=== PATIENT | female | born 1970 | race Caucasian/White ===

== ENCOUNTER 2018-05-17 16:22 | Outpatient (REF) | payer BC, SELFPAY ==
--- NOTE | 2018-05-17 16:15 | PAPFT_PTH ---
PATIENT: Anne Hayes LOC: [facility]#:[id number] AGE/SX: 47/F ROOM: RE05/17/[address]: Rosie Hansen : 1970 BED: DIS: 05/17/2018 SPEC #: [id number] RECD: 05/18/18 12:53 STATUS: LARA RETracy #: [id number] TABITHA: 05/17/18 16:[address]: Rosie Hansen DEPT: [facility] Cytology RECD BY: Natasha Sanchez ENTERED: 05/18/18 12:53 SP TYPE: PAPFT OTHR DR: Mark Whelan Tissues: 1 - CX/ENDOCX FOR PAP SMEARS Procedures: PAP THIN PREP/UVM Screening HPV DNA PROBE Comments: [id number]
[2018-05-17 21:28] LABS: Cholesterol 180 mg/dL (50-200); HDL Cholesterol 57 mg/dL (40-60); LDL CHOLESTEROL 108 mg/dL (<100); TSH (W/Ref FT4) 1.34 uIU/mL (0.358-3.74); Triglyceride 103 mg/dL (30-150)
== END 2018-05-17 16:42 ==
LOC: NCHCN 16:22
PROVIDERS: PCP Internal Medicine; Referring Provider Nurse Practitioner Family; Visit Provider Nurse Practitioner Family
DX: Z00.00 Encounter for general adult medical examination without abnormal findings (principal); N95.1 Menopausal and female climacteric states; F41.0 Panic disorder [episodic paroxysmal anxiety]; F32.9 Major depressive disorder, single episode, unspecified; Z12.4 Encounter for screening for malignant neoplasm of cervix; Z11.51 Encounter for screening for human papillomavirus (HPV)
CPT/HCPCS: 80061; 83721; 88142; 84443; 87624

== ENCOUNTER 2018-05-29 01:00 | Outpatient (CLI) | payer BC, SELFPAY ==
--- NOTE | 2018-05-29 15:57 | DI.MAMMO_ITS ---
SYMPTOM/DIAGNOSIS: SCREENING, Z12.31 MAMMOGRAM: Mammograms were interpreted according to the usual protocol including computer analysis with CAD system, tomosynthesis and C view imaging. The breast tissue is heterogeneously radiodense which lowers the sensitivity of the study. There is no dominant mass. There are no suspicious calcifications and there has been no significant interval change when compared with prior images. SUMMARY: No evidence of malignancy, Category 1 Routine screening mammography is recommended. Breast density category B. MQSA ASSESSMENT OF FINDINGS: Negative. Category 1. Patient will receive a letter notifying them of these results. BI-RADS category B. There are scattered areas of fibroglandular density.
== END 2018-05-29 01:20 ==
PROVIDERS: PCP Internal Medicine; Visit Provider Nurse Practitioner Family
DX: Z12.31 Encounter for screening mammogram for malignant neoplasm of breast (principal)
CPT/HCPCS: 77063; 77067

== ENCOUNTER 2019-07-31 01:25 | Outpatient (CLI) | payer BC, SELFPAY ==
--- NOTE | 2019-07-31 15:50 | DI.MAMMO_ITS ---
EXAM: MAMMO SCREENING CLINICAL HISTORY: SCREENING Z12.31 TECHNIQUE: Mammograms were interpreted according to the usual protocol including computer analysis w [employer] CAD system, tomosynthesis and C-view imaging. COMPARISON: Current examination is compared with previous examinations including May 2018 FINDINGS: The breasts are heterogeneously dense. No dominant mass or clumped microcalcification is identified in either breast. Current examination is compared with previous examinations including May and note is made of increased prominence of focal asymmetric density projected in the central porti on of left breast on CC view. Possibility of interval development of a mass is not excluded. Correl ation with spot compression views of the left breast to include CC spot compression view and MLO spot compression views is recommended. No other significant change is seen in either breast. IMPRESSION: Additional mammographic views, left breast, requested as described above. Breast ultrasound may be in dicated as well depending on results of additional mammographic views. Category 0, breast density cat egory C. BI-RADS Cat 0 - Assessment Incomplete: Need additional imaging evaluation Breast Density - Category C - Heterogeneously dense
== END 2019-07-31 01:45 ==
PROVIDERS: PCP Internal Medicine; Visit Provider Nurse Practitioner Family
DX: Z12.31 Encounter for screening mammogram for malignant neoplasm of breast (principal); R92.8 Other abnormal and inconclusive findings on diagnostic imaging of breast
CPT/HCPCS: 77063; 77067

== ENCOUNTER 2019-08-05 10:04 | Outpatient (CLI) | payer BC, SELFPAY ==
--- NOTE | 2019-08-05 14:11 | DI.MAMMO_ITS ---
EXAM: MAMMO SCREEN CALL BACK UNI CLINICAL HISTORY: INCREASED PROMINENCE OF FOCAL ASYMMETRIC DENSITY PROJECTED IN CENTRAL PORTION LT B REAST TECHNIQUE: Craniocaudal and mediolateral oblique Full Field Digital Mammography views with Computer Aided Diagnosis followed by Breast Tomosynthesis and left breast ultrasound. COMPARISON: MAMMO SCREEN CALL BACK UNI from 08/05/2019 FINDINGS: Mammography/Tomosynthesis: Breast Density: Breast Density - Category C - Heterogeneously dense Asymmetry: Stable appearing. Masses/Architectural Distortion: None seen. Microcalcifications: No suspicious pleomorphic-type are seen. Skin Thickening/Nipple Retraction: None. Breast Ultrasound: Left breast ultrasound: Echotexture: Normal appearance of the glandular tissue. Shadowing: No suspicious foci. Cyst: None. Solid lesions: None seen. Ductal dilation: None. IMPRESSION: 1. No evidence of malignancy at this time. Six-month follow-up left mammogram is recommended for re- evaluation. BI-RADS Cat 3 - 6 month - Probably Benign Finding: Recommend follow-up mammography in 6 months Breast Density - Category C - Heterogeneously dense The findings were discussed with the patient on the date of the examination. The mammogram demonstrates the patient's breast tissue is dense. Dense breast tissue is very common a nd is not abnormal but dense breast tissue can make it harder to find cancer on a mammogram. Also, de nse breast tissue may increase their breast cancer risk. This information about the result of the [facility] mogram report was provided to the patient to raise their awareness. Use this report when you speak wi th the patient about their risks for breast cancer, which includes their family history. At that time , you may recommend for more screening tests (Ultrasound or MRI) as they might be useful based on the ir risk. A negative radiographic report should not delay biopsy if a dominant or clinically suspicious mass is present. Up to ten percent of cancers are not identified on mammography. A negative report may reinforce clinical impression. Adenosis and dense breasts may obscure an underlying neoplasm. False positive reports average 6 to 10%. Patient will receive a letter notifying them of these results.
--- NOTE | 2019-08-05 14:33 | DI.US_ITS ---
EXAM: MG MAMMO SCREEN CALL BACK UNI AND US BREAST LT LIMITED CLINICAL HISTORY: INCREASED PROMINENCE OF FOCAL ASYMMETRIC DENSITY PROJECTED IN CENTRAL PORTION LT B REAST TECHNIQUE: Craniocaudal and mediolateral oblique Full Field Digital Mammography views with Computer Aided Diagnosis followed by Breast Tomosynthesis and left breast ultrasound. COMPARISON: MAMMO SCREEN CALL BACK UNI from 08/05/2019 FINDINGS: Mammography/Tomosynthesis: Breast Density: Breast Density - Category C - Heterogeneously dense Asymmetry: Stable appearing. Masses/Architectural Distortion: None seen. Microcalcifications: No suspicious pleomorphic-type are seen. Skin Thickening/Nipple Retraction: None. Breast Ultrasound: Left breast ultrasound: Echotexture: Normal appearance of the glandular tissue. Shadowing: No suspicious foci. Cyst: None. Solid lesions: None seen. Ductal dilation: None. IMPRESSION: 1. No evidence of malignancy at this time. Six-month follow-up left mammogram is recommended for re-e valuation. BI-RADS Cat 3 - 6 month - Probably Benign Finding: Recommend follow-up mammography in 6 months Breast Density - Category C - Heterogeneously dense The findings were discussed with the patient on the date of the examination. The mammogram demonstrates the patient's breast tissue is dense. Dense breast tissue is very common a nd is not abnormal but dense breast tissue can make it harder to find cancer on a mammogram. Also, de nse breast tissue may increase their breast cancer risk. This information about the result of the [facility] mogram report was provided to the patient to raise their awareness. Use this report when you speak wi th the patient about their risks for breast cancer, which includes their family history. At that time , you may recommend for more screening tests (Ultrasound or MRI) as they might be useful based on the ir risk. A negative radiographic report should not delay biopsy if a dominant or clinically suspicious mass is present. Up to ten percent of cancers are not identified on mammography. A negative report may reinforce clinical impression. Adenosis and dense breasts may obscure an underlying neoplasm. False positive reports average 6 to 10%. Patient will receive a letter notifying them of these results.
== END 2019-08-05 10:24 ==
PROVIDERS: PCP Internal Medicine; Visit Provider Nurse Practitioner Family
DX: Z12.31 Encounter for screening mammogram for malignant neoplasm of breast (principal); R92.8 Other abnormal and inconclusive findings on diagnostic imaging of breast; N64.59 Other signs and symptoms in breast
CPT/HCPCS: 76642; 77063; 77067

== ENCOUNTER 2020-02-04 02:31 | Outpatient (CLI) | payer BC, SELFPAY ==
--- NOTE | 2020-02-04 | DI.MAMMO_ITS ---
EXAM: MG MAMMO DIAGNOSTIC UNI CLINICAL HISTORY: ABNL LT BREAST MAMMO, R92.8 6 MO F/U TECHNIQUE: Mammograms were interpreted according to the usual protocol including computer analysis w [employer] CAD system, tomosynthesis and C-view imaging. COMPARISON: FINDINGS: Left breast mammogram was obtained to follow an area of questionable asymmetric density seen in centr al portion left breast prior examination of August 2019. Findings appears centrally unchanged on t jason's examination. No new mass seen. No other significant change in the breast. IMPRESSION: No specific evidence of malignancy. Follow-up mammogram recommended in 6 months which should be bila teral mammogram to resume routine screening of the contralateral breast as well. Category: BI-RADS Cat 3 - 6 month - Probably Benign Finding: Recommend follow-up mammography in 6 months Breast Density - Category C - Heterogeneously dense
== END 2020-02-04 02:51 ==
PROVIDERS: PCP Internal Medicine; Visit Provider Nurse Practitioner Family
DX: Z12.31 Encounter for screening mammogram for malignant neoplasm of breast (principal); R92.8 Other abnormal and inconclusive findings on diagnostic imaging of breast; N64.59 Other signs and symptoms in breast
CPT/HCPCS: 77061; 77065; G0279

== ENCOUNTER 2020-02-24 07:07 | Day surgery (SDC) | payer BC, SELFPAY ==
--- NOTE | 2020-02-24 06:16 | W.PREOPHP ---
Date of service: 02/24/20 Time of Service: 07:16 Assessment and Plan Assessment and plan (1) Encounter for colorectal cancer screening: Status: Acute Assessment and plan: The patient is here for Colonoscopy pre-op. She has no family history of colon cancer. She has not had any bowel habit changes. -Discussed colonoscopy bowel prep as well as the procedure. Discussed possible complications of the procedure to include bleeding, pain, perforation, missed small lesion/polyp, sore throat, aspiration and adverse reaction to the medications. Questions were answered to patient?s satisfaction. No guarantees were implied or given. History of Present Illness Narrative: 49 y/o female with benign medical history presents for her first colonoscopy screening pre-op. She denies a family history of colon cancer. She denies any changes in bowel habits including bloody or black tarry stools, abdominal pain, diarrhea or constipation. She denies constitutional symptoms. Denies use of marijuana or any other recreational or illegal drugs. She denies chest pain, palpitations, dyspnea or dyspnea with exertion. She performs at home workouts 5x/wk. She denies prior history or family history of adverse reactions or complications with anesthesia. No changes in her health since she was seen in the office in November. Review of Systems Constitutional Constitutional: Denies fever(s) Cardiovascular Cardiovascular: Denies chest pain, Denies irregular heart rhythm, Denies palpitations and Denies dyspnea Respiratory Respiratory: Denies cough and Denies dyspnea Endocrine Endocrine: Denies palpitations [facility] Social History (Updated 11/15/19 @ 15:00 by BUBBA Hussein) Smoking/Tobacco Use Status: Never Alcohol Intake: current Alcohol Intake frequency: a few times a week Alcohol type: wine Drug use: Never Substance use type: does not use Do you feel safe at home: Yes Do you feel safe in your relationship?: Yes Meds Home Medications and Allergies Home Medications Medication Instructions Recorded Confirmed Type [id number]-[id number] acid 1 ea PO DAILY 12/19/13 02/20/20 History [Daily Multiple Tablet] hydroxyzine HCl 25 mg tablet 25 mg PO QID PRN 10/29/19 02/20/20 History paroxetine HCl 10 mg tablet 10 mg PO DAILY 10/29/19 02/20/20 History trazodone 50 mg tablet 50 mg PO QHS PRN 02/25/20 06/18/20 History bisacodyl 5 mg tablet,delayed 5 mg PO ONCE #4 tab 11/15/19 02/20/20 Rx release polyethylene glycol 3350 17 238 g PO ONCE #238 gm 11/15/19 02/20/20 Rx gram/dose oral powder meloxicam 7.5 mg PO DAILY 02/20/20 02/20/20 History Allergies Allergy/AdvReac Type Severity Reaction Status Date / Time Penicillins Allergy Severe Throad Verified 02/20/20 12:24 Swells Exam Const General: cooperative, comfortable and no acute distress HENTN Head: normocephalic and atraumatic Resp Effort & Inspection: normal respiratory effort Auscultation: clear to auscultation bilaterally Cardio Rate: regular rate Rhythm: regular rhythm Heart Sounds: no gallops, no murmurs and no rubs
--- NOTE | 2020-02-24 06:19 | W.COLOREPORT ---
Date of service: 02/24/20 Time of Service: 07:45 Colonoscopy Report Date of procedure: 02/24/20 Pre-op diagnosis general: Colon Cancer Screening Post-op diagnosis procedure note: same Procedure: Colonoscopy under sedation Surgeon: Rosy Addison Anesthesia proc note operative: other (General/ ASA 2/Sherita Kingsotn, [place] ) Estimated blood loss (mL): 0 Pathology: none sent Complications: None Disposition: same day Indications: 49 y/o female with benign medical history presents for her first colonoscopy screening pre-op. She denies a family history of colon cancer. She denies any changes in bowel habits including bloody or black tarry stools, abdominal pain, diarrhea or constipation. She denies constitutional symptoms Prep: Miralax/Dulcolax Procedure Start Time: 07:45 Procedure End Time: 08:21 Retraction Time: 21 minutes Findings: Normal colon Procedure Description: After informed consent was obtained the patient was taken to the procedure room and placed in a left decubitous position. Monitors were applied and a time out was done. The patients name, date of , procedure, allergies to medications and metal in their body was reviewed. The patient was then sedated. Once sedated and comfortable a rectal exam was done. External exam was normal. Internal exam revealed a normal sphincter tone and no palpable masses. The scope was then introduced and retro-flexed. No internal hemorrhoids, masses or polyps were identified on retro-flexion. The scope was then advanced to the cecum without difficulty. The TI and appendiceal orifice were identified. The prep was good. The scope was then slowly retracted over [] minutes back into the rectum. There were no polyps and no diverticula. The scope was removed and the patient was woken up and taken back to Same day surgery in stable condition. The patient tolerated the procedure well and there were no immediate complications. Follow up: The patient should follow up in 10 years unless they develop changes in bowel habits or other new gastrointestinal complaints.
[2020-02-24 07:11] VITALS: BP 131/68; PULSE 60; RESP 16; TEMP 36.5; O2SAT 100
[2020-02-24] MEDS: Lactated Ringers 1,000 ML 80 ML IV (07:30)
--- NOTE | 2020-02-24 08:26 | W.PM.DSUDISC ---
Discharge Plan Disposition Patient Disposition: HOME Condition: Stable Discharge Details Reason For Visit: colonoscopy Attending Provider: Rosy Addison Primary Care Provider: Mark Whelan Home Meds and New Rx's Prescriptions: Continued Daily Multiple 1 EACH tablet 1 ea PO DAILY RF: 0 trazodone 50 mg tablet 50 mg PO QHS PRNRF: 0 paroxetine HCl [Paxil] 10 mg tablet 10 mg PO DAILY RF: 0 hydroxyzine HCl 25 mg tablet 25 mg PO QID PRNRF: 0 meloxicam 7.5 mg tablet 7.5 mg PO DAILY RF: 0 Discontinued polyethylene glycol 3350 17 gram/dose powder 238 g PO ONCE Qty: 238 RF: 0 bisacodyl [Dulcolax (bisacodyl)] 5 mg tablet,delayed release (DR/EC) 5 mg PO ONCE Qty: 4 RF: 0 Discharge Instructions Additional Instructions: Findings: normal colon Follow up: 10 years Please call if you develop: fevers >101.5 Nausea or Vomiting Abdominal pain that is not transient DAY SURGERY UNIT POST ENDOSCOPY INSTRUCTIONS 1. Because there will be medication in your system for the next 24 hours, you may feel a little sleepy. Your coordination will be affected. Therefore: a. Do not drive or operate dangerous equipment for 24 hours. b. Do not drink alcohol beverages for 24 hours (not even beer). c. Plan to go home and rest for the day. 2. Generally there are no restrictions on your activity after a day or so has gone by, but you may feel a bit fatigued for a few days. 3 After you arrive home you may have a light meal and return to a normal diet as you can tolerate it without feeling sick to your stomach. 4. After surgery, you may feel pain or discomfort. This should be only transient, but if it persists please contact your doctor. 5. If there are any questions regarding the findings of your procedure, please feel free to contact your doctor. 6. If you are unable to contact your doctor with a problem, contact the hospital at [phone]. 7. Continue all your regular medications unless directed otherwise. I understand the above instructions and have no questions. Signature of Patient or Responsible Adult Escort Date/Time Name of Responsible Adult Escort Signature of Nurse Date/Time Activity:: Activity as Tolerated Diet:: As Tolerated Discharge Orders Discharge Orders: Discharge Order (Routine); Ordered 02/24/20 Ordered By: Rosy Addison DS: Diagnosis Discharge Diagnosis (1) Encounter for colorectal cancer screening: Status: Acute
[2020-02-24 08:54] VITALS: BP 114/61; PULSE 56; RESP 16; TEMP 36.3; O2SAT 100
== END 2020-02-24 09:20 | disposition home or self-care (01) ==
PROVIDERS: PCP Internal Medicine; Visit Provider Surgery
PROC: 0DJD8ZZ Inspection of Lower Intestinal Tract, Via Natural or Artificial Opening Endoscopic (ICD-10-PCS; CPT 45378; principal; 2020-02-24 07:30)
DX: Z12.11 Encounter for screening for malignant neoplasm of colon (principal); Z80.0 Family history of malignant neoplasm of digestive organs
CPT/HCPCS: 45378; 81025; NC

== ENCOUNTER 2020-08-18 02:29 | Outpatient (CLI) | payer BC, SELFPAY ==
[2020-08-20 21:30] LABS: COVID-19 RT-PCR Result NEGATIVE (Negative)
== END 2020-08-18 02:49 ==
PROVIDERS: PCP Internal Medicine; Visit Provider Podiatrist
DX: Z11.59 Encounter for screening for other viral diseases (principal); Z01.818 Encounter for other preprocedural examination
CPT/HCPCS: U0003

== ENCOUNTER 2020-08-21 08:11 | Day surgery (SDC) | payer BC, SELFPAY ==
[2020-08-21 08:27] VITALS: BP 113/61; PULSE 69; RESP 18; TEMP 36.1; O2SAT 97
[2020-08-21] MEDS: Lactated Ringers 1,000 ML 80 ML IV (08:49)
--- NOTE | 2020-08-21 09:52 | W.PM.HP.N ---
Date of service: 08/21/20 Time of Service: 09:53 History of Present Illness History of Present Illness Chief Complaint: Plantar fasciitis chronic right foot Narrative: 49-year-old female with recalcitrant right plantar fasciitis. Post static dyskinesia, pain with weightbearing and ambulation interfering with daily activities and quality of life. She is opting for surgical intervention in attempt to obtain relief of symptoms. [facility] Medical History Depression Hot flashes Insomnia Lumbar back pain Normal colonoscopy (~02/2020) Panic disorder Surgical History History of carpal tunnel release History of colonoscopy Social History Smoking/Tobacco Use Status: Never Smoking risk assessment performed?: Yes Alcohol Intake: current Alcohol Intake frequency: a few times a week Alcohol type: wine Drug use: Never Substance use type: does not use Do you feel safe at home: Yes Do you feel safe in your relationship?: Yes Meds Home Medications and Allergies Home Medications Medication Instructions Recorded Confirmed Type Daily Multiple 1 ea PO DAILY 12/19/13 08/21/20 History hydroxyzine HCl 25 mg tablet 25 mg PO QID PRN 10/29/19 08/21/20 History paroxetine HCl 10 mg tablet 10 mg PO DAILY 10/29/19 08/21/20 History trazodone 50 mg tablet 50 mg PO QHS PRN 10/29/19 08/21/20 History meloxicam 7.5 mg PO DAILY 02/20/20 08/21/20 History Allergies Allergy/AdvReac Type Severity Reaction Status Date / Time Penicillins Allergy Severe Throad Verified 08/21/20 08:24 Swells Exam Narrative Exam Narrative: 49-year-old female in no acute distress. head is normocephalic Eyes PERRLA Hearing is adequate Uvula is midline, airway looks assessable Heart had regular rate and rhythm no gallops rubs or murmurs noted Lung huntley were clear Abdomen was soft, bowel sounds x4, nontender. Peripheral pulses at the ankle are palpable 2/4. Capillary refills of the 3 seconds. No edema. Calves are soft to palpation. Muscle groups are 5 out of 5 bilaterally. Skeletal exam is remarkable the medial aspect of the knee right heel and along the medial slip of the plantar fascia. Otherwise no gross skeletal deformities were appreciated. Neurologically she is grossly intact. Tarsal tunnels were benign, medial calcaneal nerve was benign to the right foot. Impressions: Recalcitrant right plantar fasciitis Plan: Savannah is being brought to the OR for endoscopic plantar fasciotomy procedure of the right foot. Potential risk and complications have been discussed including the potential for pain, scarring, infection, nerve injury, persistent plantar fascial like discomfort potentially requiring additional and revisional procedures. Informed consent has been obtained no promises made to the final outcome of surgery. Results Last Vital Signs Temp 36.1 C L 08/21/20 08:27 Pulse 69 08/21/20 08:27 Resp 18 08/21/20 08:27 BP 113/61 08/21/20 08:27 Pulse Ox 97 08/21/20 08:27 COVID-19 Screening Have you, or household traveled for leisure in last 14 days?: No Had IN PERSON contact w/suspected or confirmed C-19 person: No
[2020-08-21] MEDS: CLINDAMYCIN 600 MG/50 ML BAG 100 MG IVPB (10:10)
[2020-08-21] MEDS: Lidocaine 1% Pres-Free 5 ML VIAL (10:49)
[2020-08-21] MEDS: Bupivacaine 0.5% Pres-Free 30 ML VIAL (10:49)
[2020-08-21] MEDS: Dexamethasone 4 MG/ML VIAL (10:49)
--- NOTE | 2020-08-21 11:01 | PDOC.DSDIS_ITS ---
Discharge Plan Disposition Patient Disposition: HOME Condition: Good Discharge Details Attending Provider: Paul Sheriff Primary Care Provider: Mark Whelan Home Meds and New Rx's Prescriptions: New hydrocodone-acetaminophen [[place]] 5-325 mg tablet 1 tab PO Q6H PRN (Reason: pain) Qty: 9 RF: 0 Continued Daily Multiple 1 EACH tablet 1 ea PO DAILY RF: 0 trazodone 50 mg tablet 50 mg PO QHS PRNRF: 0 paroxetine HCl [Paxil] 10 mg tablet 10 mg PO DAILY RF: 0 hydroxyzine HCl 25 mg tablet 25 mg PO QID PRNRF: 0 meloxicam 7.5 mg tablet 7.5 mg PO DAILY RF: 0 Discharge Instructions Activity:: Elevate Remove Dressings/Wound Care:: Do Not Remove Shower/Bathe:: Cover Diet:: Normal Diet Discharge Orders Discharge Orders: Discharge Order (Routine); Ordered 08/21/20 Ordered By: Paul Sheriff DS: Diagnosis Discharge Diagnosis (1) Plantar fasciitis: Status: Acute
--- NOTE | 2020-08-21 11:04 | ROE_ITS ---
Date of service: 08/21/20 Time of Service: 11:04 Operative Note Operative Note DATE OF PROCEDURE: 08/21/20 PRE-OP DIAGNOSIS: Recalcitrant plantar fasciitis right foot PROCEDURE: Endoscopic plantar fasciotomy right foot SURGEON: Paul Sheriff ANESTHESIA: JEWELL ESTIMATED BLOOD LOSS: 0 PATHOLOGY: none sent TOURNIQUET TIME: 20 COMPLICATIONS: None Patient was transported to: same day Patient's condition: stable Indications: 49-year-old female with recalcitrant right plantar fasciitis that has failed nonoperative treatments. Pain is experienced on a daily basis interfering with shoe gear, weightbearing and ambulation. She is opting for surgical intervention in attempt to relieve pain and improve function. She understands risk and complications of surgery pertaining to pain, scarring, infection, neurologic injury, persistent plantar fasciitis. She is aware that revisional procedures are available and may be necessary if she fails to thrive. All questions have been answered in detail. Informed consent has been obtained. Procedure Description: Anne was brought to the operative suite placed in the supine position with the right foot was prepped and draped in the usual sterile podiatric fashion. Anesthesia was obtained with sedation including a block of the right ankle utilizing 20 cc of a 50: 50 mixture 1% lidocaine plain, 0.5% Marcaine plain. The right foot was exsanguinated and a well-padded ankle tourniquet inflated 250 mmHg. Attention was directed to the medial aspect of the right heel where a 1 cm vertical incision was placed just above the medial edge of the plantar fascia. With a curved hemostat the medial vestige of the plantar fascia was identified tunnel was created from medial to lateral across the plantar aspect. Fascial elevator was used to create this time. The operative cannula was then inserted and exited the plantar lateral side of the heel. The scope was inserted from a lateral to medial approach and the plantar fascia was immediately identified. A picture was obtained. The hook plate was then inserted into the cannula in the medial third of the plantar fascia re lease. Muscle belly was noted once the fibers of the plantar fascia .. A picture was obtained. The scope was removed and brought medial to lateral. The triangular blade was then used to release any remaining septae. The scope was removed at this time and the cannula was irrigated copiously with normal saline. The cannula was then removed.. Finger palpation externally through the foot revealed release of the plantar fascia as expected. The medial lateral incisions were closed with simple interrupted sutures 4-0 nylon. 4 mg of dexamethasone phosphate was then infused deeply into the wound. Xeroform applied to both incisions gauze fluff compression dressings applied. Tourniquet was released to 20 minutes with vascularity returning immediately to the foot. Chart and sponge counts were correct. Anne left the the OR with vital signs stable and vascular status intact and will be followed by myself in the office next week.
[2020-08-21 11:29] VITALS: BP 106/61; PULSE 59; RESP 16; TEMP 36; O2SAT 100
== END 2020-08-21 12:31 | disposition home or self-care (01) ==
PROVIDERS: PCP Internal Medicine; Visit Provider Podiatrist
PROC: (CPT 29893; principal; 2020-08-21 10:00)
DX: M72.2 Plantar fascial fibromatosis (principal)
CPT/HCPCS: 29893; 99235; J1100; J2001

== ENCOUNTER 2021-07-28 08:40 | Outpatient (CLI) | payer BC, SELFPAY ==
--- NOTE | 2021-07-28 08:30 | DI.RAD_ITS ---
Exam(s) XR SHOULDER RT COMPLETE 2+V EXAM: XR SHOULDER RT COMPLETE 2+V CLINICAL HISTORY: right arm pain TECHNIQUE: COMPARISON: No exams were available for comparison FINDINGS: Two views were obtained. The cartilaginous joint space of the glenohumeral joint appears fairly well maintained. There is mild deformity of the glenoid, of uncertain etiology. Humeral articular surfa ce appears fairly well maintained.. Minimal marginal osteophytes of the acromion and glenoid are not ed. AC joint appears intact as visualized. IMPRESSION: RADIATION DOSE DELIVERED: Total DLP
== END 2021-07-28 08:41 | disposition home or self-care (01) ==
LOC: DIORS 08:40
PROVIDERS: PCP Internal Medicine; Referring Provider Internal Medicine; Visit Provider Student in an Organized Health Care Education/Training Program
DX: M79.601 Pain in right arm (principal)
CPT/HCPCS: 73030

== ENCOUNTER 2021-09-28 02:42 | Outpatient (CLI) | payer OTHER, SELFPAY ==
--- NOTE | 2021-09-28 07:45 | DI.MRI_ITS ---
Exam(s) MR UPPER JOINT RT WO EXAM: MR UPPER JOINT RT WO CLINICAL HISTORY: Worsening pain, weakness,TRAUMATIC TEAR RT ROTATOR CUFF,BURSITIS. TECHNIQUE: Multiplanar multisequence MRI was performed. COMPARISON: CR XR SHOULDER RT COMPLETE 2+V from 07/28/2021 FINDINGS: BONES: There is no fracture or contusion pattern. There is a cyst in the posterior lateral aspect of the humeral head. JOINTS: The acromioclavicular joint is normal. The glenohumeral joint is normal. TENDONS: Supraspinatus: No evidence of a tear. Infraspinatus: Unremarkable. Subscapularis: Hyperintense signal seen within the subscapularis tendon consistent with a partial tea r. [place]: Unremarkable. Biceps and [place]: Unremarkable. MUSCLES: Unremarkable. GLENOID LABRUM: On the T2 axial images there is hyperintense signal seen associated with the posterio r and superior labrum suspicious for tear. SOFT TISSUES: Unremarkable. LIGAMENTS: Unremarkable. OTHER: Small amount of fluid in the subacromial bursa. IMPRESSION: 1. Hyperintense signal seen within the subscapularis tendon consistent with partial tear. 2. Hyperintense signal associated with the posterior superior labrum suspicious for tear. 3. No evidence of a fracture. 4. DATA REPOSITORY:
== END 2021-09-28 03:02 ==
PROVIDERS: PCP Internal Medicine; Visit Provider Student in an Organized Health Care Education/Training Program
DX: M25.511 Pain in right shoulder (principal); S46.891A Other injury of other muscles, fascia and tendons at shoulder and upper arm level, right arm, initial encounter; S46.811A Strain of other muscles, fascia and tendons at shoulder and upper arm level, right arm, initial encounter; M75.51 Bursitis of right shoulder; X58.XXXA Exposure to other specified factors, initial encounter
CPT/HCPCS: 73221

== ENCOUNTER 2021-10-26 03:16 | Outpatient (CLI) | payer OTHER, SELFPAY ==
[2021-10-26 14:56] LABS: Source Nasal/Nares
[2021-10-26 17:12] LABS: COVID-19 PCR Negative (Negative)
== END 2021-10-26 03:17 | disposition home or self-care (01) ==
LOC: LBO 03:16
PROVIDERS: PCP Internal Medicine; Visit Provider Student in an Organized Health Care Education/Training Program
DX: Z20.822 Contact with and (suspected) exposure to COVID-19 (principal); Z01.818 Encounter for other preprocedural examination
CPT/HCPCS: 87635

== ENCOUNTER 2021-10-28 08:51 | Day surgery (SDC) | payer OTHER, SELFPAY ==
[2021-10-28] VITALS (8 sets, daily range): BP systolic 101–139; BP diastolic 55–85; PULSE 62–83; RESP 14–16; TEMP 35.9–37.2; O2SAT 94–98; BMI 25.2
[2021-10-28] MEDS: Lactated Ringers 1,000 ML 100 ML IV (09:53)
--- NOTE | 2021-10-28 09:59 | W.ANESPRE ---
General Info Date of Service Date Performed: 10/28/21 Height: 5 ft 7 in Weight: 73 kg Body Mass Index (BMI): 25.2 Surgical Procedure: Operation Date: 10/28/21 10:55 Proposed Procedure Side Surgeon p Shoulder Arthroscopy w/Extensive Debridement, Bicep Tenodesis,Subacromial Decompression, possible Rotator Cuff Repair Right Gamaliel Alcantar MD Pre-Op Diagnosis Post-Op Diagnosis (1) Pain in right acromioclavicular joint: (2) Traumatic tear of right rotator cuff: (3) Impingement syndrome of right shoulder: (4) Bursitis of right shoulder: (5) Tendonitis of long head of biceps brachii of right shoulder: (6) SLAP lesion of right shoulder: Meds Allergies and Home Medications Allergies Allergy/AdvReac Type Severity Reaction Status Date / Time Penicillins Allergy Severe Anaphylaxis Verified 10/28/21 09:13 Home Medication Medication Instructions Recorded multivitamin-ferrous 1 ea PO DAILY 12/19/13 fumarate-folic acid 18 mg-400 mcg tablet (Daily Multiple) amitriptyline 10 mg tablet 10 mg PO HS 07/15/21 buspirone 5 mg tablet 5 mg PO TID 07/15/21 paroxetine HCl 30 mg tablet 30 mg PO DAILY 07/15/21 aspirin 81 mg tablet,delayed 81 mg PO DAILY 14 Days #14 tab 10/28/21 release naproxen 250 mg tablet 250 - 500 mg PO BID PRN #40 tab 10/28/21 oxycodone 5 mg tablet 5 - 10 mg PO Q4H PRN #18 tab MDD 10/28/21 30 mg Current Visit Medications: Current Medications Generic Name Dose Route Start Last Admin Trade Name Freq PRN Reason Stop Dose Admin Ringer's Solution 1,000 mls @ 100 mls/hr 10/28/21 06:00 10/28/21 09:53 IV 11/26/21 23:59 100 mls/hr INFUSION GEO Administration Clindamycin Phosphate/Dextrose 900 mg in 50 mls @ 50 mls/hr 10/28/21 09:34 Cleocin In D5w IVPB 10/28/21 10:33 NOW ONE IV Miscellaneous Supplies 1 each 10/28/21 06:00 Iv Access IV 11/26/21 23:59 DIRECTED GEO Naproxen 250 - 500 mg 10/28/21 07:29 Naproxen 500 Mg Tab PO BID PRN PRN Oxycodone HCl 5 - 10 mg 10/28/21 07:29 Oxycodone 5 Mg Tab PO Q4H PRN PRN Sodium Chloride 0 ml 10/28/21 06:00 Normal Saline Flush 10 Ml Syr IV 11/26/21 23:59 PRN PRN Sodium Chloride 0 ml 10/28/21 06:00 Normal Saline 10 Ml Vial IJ 11/26/21 23:59 DIRECTED PRN Sterile Water 0 ml 10/28/21 06:00 Water,Injection,Sterile 10 Ml Vial IJ 11/26/21 23:59 DIRECTED PRN PFSH Active Problems Active Problems: Problem Status Onset Code Encounter for colorectal cancer screening Z12.11, Z12.12 Plantar fasciitis M72.2 Bursitis of right shoulder ~01/2021 M75.51 Impingement syndrome of right shoulder ~01/2021 M75.41 Tendonitis of long head of biceps brachii of right shoulder ~01/2021 M75.21 Traumatic tear of right rotator cuff S46.011A Pain in right acromioclavicular joint M25.511 SLAP lesion of right shoulder S43.431A Medical History Medical History (Updated 10/28/21 @ 09:11 by Esperanza Avelar RN) Depression Hot flashes Insomnia Lumbar back pain Normal colonoscopy (~02/2020) Panic disorder Plantar fasciitis endoscopic fasciotomy right foot 2020 Surgical History Surgical History History of carpal tunnel release History of colonoscopy Tobacco Smoking/Tobacco Use Status: Never Alcohol Alcohol Intake: current Alcohol intake frequency: a few times a week Alcohol type: wine Substance Use Substance use: Never Substance use type: does not use Vital Signs and Lab Results Vital Signs Most Recent Vital Signs in EMR: Most Recent Vital Signs Temp Pulse Resp BP Pulse Ox 36.3 C L 83 16 139/85 98 10/28/21 08:55 10/28/21 08:55 10/28/21 08:55 10/28/21 08:55 10/28/21 08:55 Lab Results Blood Type / Crossmatch: No Data to Display Complete Blood Count: No Data to Display Complete Metabolic Panel: No Data to Display Liver Function Panel: No Data to Display Coagulation Panel: No Data to Display Cardiac Panel: No Data to Display Arterial Blood Gas: No Data to Display Venous Blood Gas: No Data to Display Pancreas Panel: No Data to Display Thyroid Panel: No Data to Display Infectious Disease: Coronavirus (COVID-19)(PCR) Negative (Negative) 10/26/21 10:24 10/26/21 Coronavirus 2019 Source Nasal/Nares 10/26/21 10:24 10/26/21 Blood Cultures: No Data to Display Toxicology Panel: No Data to Display Panel: No Data to Display Anesthesia Assessment and Plan Anesthesia History Personal History: No History of Anesthesia Complications Family History: No Family History of Anesthesia Complications Exercise Tolerance Exercise Tolerance: Metabolic Equivalents>4 Pertinent Negatives Pertinent Negatives: No Symptoms of GERD, No Major Cardiovascular Symptoms or Complaints, No Major Pulmonary Symptoms or Complaints and No History of CVA/TIA Cardiac & Pulmonary Exam Cardiac Exam: Normal S1/S2 Heart Sounds Pulmonary Exam: Clear Bilateral Breath Sounds Implantable Cardiac Device Does patient have a Pacemaker or an ICD?: No Airway Exam Known Difficult Airway: No Mallampati Class: 3 Mouth Opening: Normal (> 3cm) Thyromental Distance: Greater than 3 cm Neck Range of Motion: Full ROM Neck Circumference: Normal Teeth Condition: Normal Dentition ASA Classification ASA Score: ASA 2 Emergency Case?: No NPO Status NPO Status: NPO Clears >2 hours, Solids >8 hours Status Status: Not Relevant due to Medical History Anesthesia Plan Resuscitation Status: Full Code Anesthesia Technique: General Anesthesia Airway Planned: Endotracheal Tube Pain Management: Surgeon and patient request nerve block Monitors Used: Standard Monitors
[2021-10-28] MEDS: CLINDAMYCIN 900 MG/50 ML BAG 50 MG IVPB (10:51)
--- NOTE | 2021-10-28 11:00 | ROE_ITS ---
Date of service: 10/28/21 Time of Service: 10:00 Operative Note Operative Note DATE OF PROCEDURE: 10/28/21 PRE-OP DIAGNOSIS: Right: 1. SLAP tear 2. LHB tendinopathy 3. Bursitis 4. Impingement 5. AC joint pain POST-OP DIAGNOSIS: same PROCEDURE: Right: 1. Arthroscopic biceps tenodesis, CPT# 67129. This involved arthroscopically suturing and reattaching the long head of the biceps tendon to the proximal humerus at the superior margin of the bicipital groove with a screw at the correct tension. 2. Extensive debridement, CPT# 83426. This involved using arthroscopic hand instruments, power instruments, and radiofrequency instruments to release the long head of the biceps tendon and debride areas of labral tearing, SLAP tearing and anterior, superior, and posterior glenoid labral margin, and synovitis within the glenohumeral joint anteriorly, superiorly and posteriorly. 3. Arthroscopic distal clavicle excision, CPT# 43832. This involved arthroscopically exposing the underside of the acromioclavicular joint, smoothing out bone spurs, and removing approximately 5 mm of the distal clavicle so there was no bone left engaging the acromion. 4. Subacromial decompression with partial acromioplasty, CPT# 83708. This involved using arthroscopic power instruments and a radiofrequency wand to complete a bursectomy and remove bone spurs on the undersurface of the acromion. The assistant quality manager was medically required in order to help assist in techniques above, which require positioning the arm, holding the arthroscope, and manipulating multiple instruments and sutures at the same time. This cannot be done without the help of an experienced assistant quality manager. SURGEON: Gamaliel Alcantar HAND SUTURE WINDER: Sarita Nova ANESTHESIA TYPE: General LMA/ETT and Primary Nerve Block Refer to Anesthesia Record PATHOLOGY: none sent COMPLICATIONS: None Patient was transported to: PACU Patient's condition: stable Implants: Arthrex: 4.75mm SwiveLocks x 1 Indications: The patient was diagnosed with the above conditions and appropriately indicated for surgical intervention. Please see complete medical record for details. Findings: Exam under anesthesia: Full range of motion with mechanical symptoms, but no instability Glenohumeral joint: Significant anterior superior and to a lesser extent posterior synovitis. Bucket-handle type SLAP tear with displacement of the biceps anchor into the joint and extension of the labral tear about to the equator anteriorly and posteriorly. Moderate chondromalacia diffusely glenoid and to a lesser extent humeral head with moderate joint space narrowing. Degenerative type labral fraying about the labral tearing. Intact subscapularis. Intact articular rotator cuff. Subacromial space: Moderate bursitis. Intact bursal rotator cuff. Mild undersurface acromial bone spurring. Moderate focal distal clavicle acromion impingement. Procedure Description: In the operating room, general anesthesia was induced. Bilateral shoulders were examined. The patient was positioned in the beachchair position. All bony prominences were well-padded. Preoperative antibiotics were administered. The shoulder was prepped and draped in the usual sterile fashion. The correct patient, procedure, and side of the procedure were all verified prior to incision. Starting through the posterior portal a standard complete diagnostic arthroscopy was performed of the glenohumeral joint including inspection of the long head of the biceps, anterior and superior labrum, subscapularis tendon, supraspinatus and infraspinatus tendons, and axillary recess. The glenoid and humeral head cartilage as well as the posterior labrum were inspected from an anterior viewing portal. Significant findings and interventions noted above. Of note there was a displaced bucket-handle type superior labral tear. The biceps was resected to a stable margin. The anterior posterior and superior margins of the glenoid were debrided with the mechanical shaver and the rasp to optimize scarr ing healing between the labrum and bony glenoid. No formal labral repair was done given the more degenerative type tearing and moderate degenerative glenohumeral changes already present to prevent tissue repair failure and stiffness. An all-arthroscopic suprapectoral biceps tenodesis was performed through an anterior portal using a Loop N Tack method with a SutureTape FiberLink cinched around and through the tendon. The biceps was tenotomized from the labrum and fixated with a suture anchor at the superior margin of the bicipital groove. Once the biceps tendon was tenotomized from the superior labrum and secured to the superior aspect of the bicipital groove, the labral tear remained in appropriate position did not impinge in the joint. Starting through the posterior portal, the arthroscope was directed into the subacromial space. A lateral 50 yard line lateral portal was omitted. A combination of power instruments and a radiofrequency ablator were used to debride bursitis anteriorly, posteriorly, and laterally as well as expose and smooth bone spurring on the undersurface of the acromion. The coracoacromial ligament was preserved. The anterior portal was redirected towards the undersurface of the AC joint. A shaver and electrocautery device were used to clear soft tissue from the undersurface of the AC joint. The distalmost 5 mm of the distal clavicle was then removed and smoothed. Care was taken to alternate between working through the anterior portal and viewing through the anterior portal to ensure that proper amount of bone was removed and there was no engaging bone left behind especially superiorly. The bursectomy was completed laterally and rotator cuff inspected and confirmed to be intact. The shoulder was drained of arthroscopic fluid. All portal sites were copiously irrigated. These incisions were closed using 3-0 Monocryl in a buried fashion and then covered with Mastisol, Steri-Strips, Xeroform, dry gauze, and ABDs. The dressings were covered and secured with Medipore tape. The operative extremity was placed into a sling for immobilization. The patient awoke from anesthesia without complication and was transferred to the recovery room in a stable condition.
--- NOTE | 2021-10-28 11:20 | W.ANESNERVE ---
Nerve Block Single Injection Procedure Date and Time Date Performed: 10/28/21 Procedure Start: 10:20 Location Where Procedure Performed Procedure Location: Day Surgery Unit Reason Performed: Postoperative Analgesia Requesting Provider: Gamaliel Alcantar Timeout Performed Timeout Performed: Yes Monitoring Used ECG, Blood Pressure, SpO2 and See EMR for corresponding vital signs Sterility Sterility: Hand Hygiene, Surgical Cap, Surgical Mask, Sterile Gloves and Chlorhexidine Sedation Given During Procedure Sedation Given (Indicate Dose Given): Versed IV Dose:: 2 mg Patient Mental Status Patient Mental Status: Sedate with meaningful communication Nerve Block 1st Nerve Block: Laterality: Right Block Type: Interscalene Needle / Catheter Used: 100mm SonoPlex II Local Anesthetic Bolus (Indicate Dose Given): Lidocaine used for local infiltration of skin, Injected in 3-5ml increments after negative blood aspiration, Bupivacaine 0.5% Dose:: 10 ml and Exparel Dose:: 10 ml Additives (Indicate Dose Given): None Ultrasound: Sterile probe cover and gel used Ultrasound Image Saved?: Yes Nerve Stimulator: Not Used Paresthesia: None Procedure Tolerated: No Complications and Patient tolerated well Procedure Outcome: Successful Performed By: Catherine Schulz
[2021-10-28] MEDS: EPINEPHrine 30 MG/30 ML VIAL (12:00)
--- NOTE | 2021-10-28 12:21 | PDOC.DSDIS_ITS ---
Discharge Plan Disposition Patient Disposition: HOME Condition: Stable Discharge Details Reason For Visit: Right shoulder surgery Attending Provider: Gamaliel Alcantar Primary Care Provider: Mark Whelan Home Meds and New Rx's Prescriptions: New naproxen 250 mg tablet 250 - 500 mg PO BID PRNQty: 40 0RF Rx Instructions: take with a meal aspirin 81 mg tablet,delayed release (DR/EC) 81 mg PO DAILY 14 Days Qty: 14 0RF oxycodone 5 mg tablet 5 - 10 mg PO Q4H MDD 30 mg PRN (Reason: moderate to severe pain) Qty: 18 0RF Continued Daily Multiple 1 EACH tablet 1 ea PO DAILY 0RF amitriptyline 10 mg tablet 10 mg PO HS 0RF paroxetine HCl 30 mg tablet 30 mg PO DAILY 0RF buspirone 5 mg tablet 5 mg PO TID 0RF Discharge Instructions Additional Instructions: Surgery: Right shoulder arthroscopy with biceps tenodesis, extensive debridement, distal clavicle excision, and subacromial decompression. Activity: You should gradually increase range of motion motion and use of your shoulder. Please perform daily gentle stretching exercises. You may use your shoulder for all regular activities. Avoid heavy lifting, reaching overhead, and lifting away from body for approximately 6 to 8 weeks. You may use the sling whenever you are out of the house for a few weeks. At home it is best to remove the sling and rest the arm on a pillow at your side or support the operative side with your other hand. A physical therapy prescription will be sent electronically to start in about 2-3 weeks. Prescriptions: Aspirin 81 mg take 1 daily to prevent a blood clot for 2 weeks Naproxen 250 mg take 1-2 every 12 hours with a meal as needed for moderate pain Oxycodone 5 mg take 1-2 every 4-6 hours as needed for severe pain You may use [id number] Tylenol (acetaminophen) as needed for mild pain. These pain medications may be taken all at once or in different combinations as needed. Also, recommend Colace (docusate) as a stool softener as surgery and pain medicine cause constipation. Dressings: Remove shoulder bandage after 3 days. Leave the sticky Steri-Strips in place until they fall off or remove them after you shower. Cover the incisions with Band-Aids or leave them open to air. You may shower after 5 days. Follow-up: 10-[address] Alcantar You may take off the leg compression stockings this evening at home. You may also leave them on a few days longer if you have a history of leg swelling or edema. Let us know right away if you develop any redness, drainage, fevers, chest pain, or trouble breathing. Do not drink alcohol or drive for at least 24 hours after anesthesia. Please call the office during business hours with any questions or concerns. Referrals: Gamaliel Alcantar MD [ [facility] STAFF PHYSICIAN] - Discharge Orders Discharge Orders: Discharge Order (Routine); Ordered 10/28/21 Ordered By: Gamaliel Alcantar DS: Diagnosis Discharge Diagnosis (1) Bursitis of right shoulder: Status: Acute (2) Impingement syndrome of right shoulder: Status: Acute (3) Tendonitis of long head of biceps brachii of right shoulder: Status: Acute (4) Traumatic tear of right rotator cuff: Status: Acute (5) SLAP lesion of right shoulder: Status: Acute (6) Pain in right acromioclavicular joint: Status: Acute
--- NOTE | 2021-10-28 13:26 | W.ANESPOSTOP ---
Postoperative Evaluation Date, Time and Location Date Performed: 10/28/21 Time Performed: 13:00 Patient Location: PACU Vital Signs Most Recent Imported Vital Signs: Most Recent Vital Signs Temp Pulse Resp BP Pulse Ox 35.9 C L 62 16 117/62 96 10/28/21 12:59 10/28/21 12:59 10/28/21 12:59 10/28/21 12:59 10/28/21 12:59 Pain Score Most Recent Pain Score: Most Recent Pain Score Pain Level 0 10/28/21 12:59 Assessment Mental Status: Awake (Alert & Oriented to Patient Baseline) Airway and Respiratory Function: Patent airway with normal (patient baseline) respiratory exam Cardiovascular Function: Hemodynamically Stable Hydration Status: Adequately Hydrated Nausea & Vomiting: No Nausea or Vomiting Pain: Pt. Denies Any Pain Peripheral Nerve Block: Regional nerve block not resolved at time of post operative discharge
== END 2021-10-28 14:15 | disposition home or self-care (01) ==
PROVIDERS: PCP Internal Medicine; Visit Provider Student in an Organized Health Care Education/Training Program
PROC: (CPT 29805; principal; 2021-10-28 10:45)
DX: M75.21 Bicipital tendinitis, right shoulder (principal); M75.41 Impingement syndrome of right shoulder; M75.51 Bursitis of right shoulder; M24.111 Other articular cartilage disorders, right shoulder
CPT/HCPCS: 29828; 29826; 29824; 29823; 76942; J1100; J1885; J2001; J2250; J2370; J2405; J2704

== ENCOUNTER → 2022-04-13 01:29 | Outpatient (CLI) | payer OTHER, SELFPAY ==
--- NOTE | 2022-04-13 | DI.MAMMO_ITS ---
Exam(s) MAMMO SCREENING EXAM: MAMMO SCREENING CLINICAL HISTORY: SCREENING, Z12.31 TECHNIQUE: Mammograms were interpreted according to the usual protocol including computer analysis w [facility] CAD system, tomosynthesis and C-view imaging. COMPARISON: FINDINGS: The breasts are heterogeneously dense. No dominant mass or clumped microcalcification is identified in either breast. The current examination is compared with previous examinations including July 2019 and there has been no gross interval change in appearance in comparison with the prior studies. IMPRESSION: No specific evidence of malignancy at this time. Routine screening examinations are suggested at yea rly intervals in this age group according to the ACS ACR guidelines. BI-RADS Category 1 - Negative Breast Density - Category C - Heterogeneously dense
== END ==
PROVIDERS: PCP Internal Medicine; Visit Provider Nurse Practitioner Family
DX: Z12.31 Encounter for screening mammogram for malignant neoplasm of breast (principal); R92.8 Other abnormal and inconclusive findings on diagnostic imaging of breast
CPT/HCPCS: 77063; 77067

== ENCOUNTER 2022-10-27 00:58 | Outpatient (CLI) | payer OTHER, SELFPAY ==
--- NOTE | 2022-10-27 08:20 | DI.MRI_ITS ---
Exam(s) MR UPPER JOINT RT WO EXAM: MR UPPER JOINT RT WO CLINICAL HISTORY: R SHOULDER PAIN,SLAP LESION, ADHESIVE CAPSULITIS, IMPINGEMENT SYNDROME,S43.. TECHNIQUE: Multiplanar multisequence MRI was performed. COMPARISON: MR MR UPPER JOINT RT WO from 09/28/2021 FINDINGS: BONES: There is no fracture or contusion pattern. Postsurgical changes are seen in the humeral head. JOINTS: The acromioclavicular joint is normal. Degenerative changes are seen at the glenohumeral join t with joint space narrowing, thinning of the articular cartilage and subchondral edema. TENDONS: Supraspinatus: Unremarkable. Infraspinatus: Unremarkable. Subscapularis: Unremarkable. Teres Minor: Unremarkable. Biceps and [place]: The biceps tendon is seen within the bicipital groove. MUSCLES: Unremarkable. GLENOID LABRUM: The glenoid labrum is unchanged with some hyperintense signal seen beneath the labor relations worker ior and superior labrum. SOFT TISSUES: Unremarkable. LIGAMENTS: Unremarkable. OTHER: Subacromial and subdeltoid bursae are unremarkable. IMPRESSION: 1. Interval postsurgical changes involving the proximal humerus since 09/28/2021. 2. Stable appearance of the glenoid labrum. 3. No evidence of an acute rotator cuff tear. DATA REPOSITORY:
== END 2022-10-27 01:18 ==
LOC: DI 00:59
PROVIDERS: PCP Internal Medicine; Visit Provider Student in an Organized Health Care Education/Training Program
DX: M75.01 Adhesive capsulitis of right shoulder; M75.41 Impingement syndrome of right shoulder; M75.51 Bursitis of right shoulder; S43.431A Superior glenoid labrum lesion of right shoulder, initial encounter; Z98.890 Other specified postprocedural states; M25.511 Pain in right shoulder
CPT/HCPCS: 73221

== ENCOUNTER 2022-10-27 02:58 | Outpatient (CLI) | payer OTHER, SELFPAY ==
[2022-10-27 09:12] LABS: Abs Immature Grans 0.04 10^3/uL (0.0-0.06); Absolute Basophil Count 0.05 10^3/uL (0.0-0.2); Absolute Eosinophil Count 0.41 10^3/uL (0.0-0.7); Absolute Lymphocyte Count 1.75 10^3/uL (1.2-3.4); Absolute Monocyte Count 0.57 10^3/uL (0.1-0.8); Absolute Neutrophil Count 2.89 10^3/uL (1.2-6.7); Basophils % 0.9; Eosinophils % 7.2; HCT 38.9 % (36.0-46.0); HGB 13.2 g/dL (11.2-15.7); Immature Grans % 0.7; Lymphocytes % 30.6; MCH 31.3 pg (27.0-33.0); MCHC 33.9 % (32.0-36.0); MCV 92 fL (80-95); MPV 9.5 fL (8.0-11.0); Neutrophils % 50.6; Platelet Count 236 10^3/uL (130-400); RBC 4.22 10^6/uL (3.93-5.22); RDW 12.3 % (11.7-14.6); RDW-SD 41.4 fL; WBC 5.71 10^3/uL (4.4-10.8)
[2022-10-27 09:26] LABS: ESR 2 mm/hr (0-30)
[2022-10-27 09:52] LABS: C-Reactive Protein < 0.05 mg/dL (0.0-0.3)
== END 2022-10-27 02:59 | disposition home or self-care (01) ==
LOC: LBO 02:58
PROVIDERS: PCP Internal Medicine; Visit Provider Student in an Organized Health Care Education/Training Program
DX: M25.511 Pain in right shoulder (principal); M75.01 Adhesive capsulitis of right shoulder; M75.41 Impingement syndrome of right shoulder
CPT/HCPCS: 36415; 85652; 85025; 86140

== ENCOUNTER 2022-11-24 07:56 | Day surgery (SDC) | payer OTHER, SELFPAY ==
--- NOTE | 2022-11-24 07:16 | PDOC.DSDIS_ITS ---
Date of service: 11/24/22 Time of Service: 12:30 Discharge Plan Discharge Details Attending Provider: Gamaliel Alcantar Primary Care Provider: Mark Whelan Home Meds and New Rx's Prescriptions: New naproxen 250 mg tablet 250 - 500 mg PO BID PRNQty: 30 0RF Rx Instructions: take with a meal oxycodone 5 mg tablet 5 - 10 mg PO Q4H MDD 30 mg PRN (Reason: moderate to severe pain) Qty: 12 0RF Continued sumatriptan succinate 50 mg tablet 50 mg PO ONCE acetylcysteine [NAC] 600 mg capsule 600 mg PO DAILY Daily Multiple 1 EACH tablet 1 ea PO DAILY amitriptyline 10 mg tablet 10 mg PO HS paroxetine HCl 30 mg tablet 30 mg PO DAILY buspirone 5 mg tablet 10 mg PO TID Discharge Instructions Additional Instructions: Surgery: Right shoulder manipulation under anesthesia Activity: Encourage increasing range of motion. Perform daily stretching e xercises. Resume physical therapy tomorrow. Prescriptions: Naproxen 250 mg take 1-2 every 12 hours with a meal as needed for moderate pain Oxycodone 5 mg take 1-2 every 4-6 hours as needed for severe pain You may use [id number] Tylenol (acetaminophen) as needed for mild pain. These pain medications may be taken all at once or in different combinations as needed. Also, recommend Colace (docusate) as a stool softener as surgery and pain medicine cause constipation. You may try [id number] diphenhydramine (Benadryl) 25-50 mg nightly as a sleep aid Dressings: None Follow-up: 10-[address] Alcantar You may take off the leg compression stockings this evening at home. You may also leave them on a few days longer if you have a history of leg swelling or edema. Let us know right away if you develop any redness, drainage, fevers, chest pain, or trouble breathing. Do not drink alcohol or drive for at least 24 hours after anesthesia. Please call the office during business hours with any questions or concerns. DS: Diagnosis Discharge Diagnosis (1) Arthritis of right glenohumeral joint: Status: Acute (2) Adhesive capsulitis of right shoulder: Status: Acute
--- NOTE | 2022-11-24 07:19 | ROE_ITS ---
Date of service: 11/24/22 Time of Service: 10:00 Operative Note Operative Note DATE OF PROCEDURE: 11/24/22 PRE-OP DIAGNOSIS: Right shoulder adhesive capsulitis POST-OP DIAGNOSIS: same PROCEDURE: Right shoulder manipulation under anesthesia, CPT# 96543 SURGEON: Gamaliel Alcantar [employer]ER: None None ANESTHESIA TYPE: General:No Airway and Primary Nerve Block Refer to Anesthesia Record COMPLICATIONS: None Patient was transported to: same day Patient's condition: stable Indications: Please see complete medical record for details. Procedure Description: In the operating room, general anesthesia was induced. The patient was positioned supine on the stretcher. Bony prominences were padded. Preoperative antibiotics were omitted. The correct patient, procedure, and site of procedure were all verified prior to beginning. The Right shoulder was examined under anesthesia. Range of motion was was limited with rigid endpoints about 45 degrees external rotation at the side, 90 degrees forward elevation, and maybe 45 degrees internal rotation difficult to fully assess as abduction was limited to about 60 degrees. Limited motion arc did not demonstrate any significant mechanical glenohumeral symptoms or instability. Using a short lever arm and alternating carefully with steady pressure forward elevation, external rotation at the side, external and internal rotation at 90 degrees abduction, and abduction were restored and confirmed to be nearly symmetrical to the contralateral side. Releases were achieved without undue stress. All terminal range of motion endpoints were reinforced numerous times including across the body and internal rotation. Post manipulation, the glenohumeral joint was stable with not unexpected mechanical glenohumeral crepitation going through abduction external rotation around 90 degrees forward elevation. Forward elevation was about 135 degrees with slight spring down to 125 degrees, external rotation at the side 75 degrees, internal rotation at 90 degrees of abduction about 75 degrees. The patient awoke from anesthesia without complication and was transferred to the day surgery unit in a stable condition.
[2022-11-24 08:26] VITALS: BP 125/75; PULSE 85; RESP 16; TEMP 36.4; O2SAT 96
[2022-11-24] MEDS: Lactated Ringers 1,000 ML 30 ML IV (08:30)
--- NOTE | 2022-11-24 08:38 | ANES.PREOP_ITS ---
General Info Date of Service Date Performed: 11/24/22 Height: 5 ft 7 in Weight: 77.8 kg Body Mass Index (BMI): 26.9 Surgical Procedure: Operation Date: 11/24/22 09:25 Proposed Procedure Side Surgeon p Shoulder Manipulation Under Anesthesia Right Gamaliel Alcantar MD Meds Allergies and Home Medications Allergies Allergy/AdvReac Type Severity Reaction Status Date / Time Penicillins Allergy Severe Anaphylaxis Verified 11/24/22 08:12 Home Medication Medication Instructions Recorded multivitamin-ferrous 1 ea PO DAILY 12/19/13 fumarate-folic acid 18 mg-400 mcg tablet (Daily Multiple) amitriptyline 10 mg tablet 10 mg PO HS 07/15/21 paroxetine HCl 30 mg tablet 30 mg PO DAILY 07/15/21 buspirone 5 mg tablet 10 mg PO TID 10/04/22 acetylcysteine 600 mg capsule (NAC) 600 mg PO DAILY 11/08/22 sumatriptan succinate 50 mg tablet 50 mg PO ONCE 11/08/22 naproxen 250 mg tablet 250 - 500 mg PO BID PRN #30 tabs 11/24/22 oxycodone 5 mg tablet 5 - 10 mg PO Q4H PRN moderate to 11/24/22 severe pain #12 tabs Current Visit Medications: Current Medications Generic Name Dose Route Start Last Admin Trade Name Freq PRN Reason Stop Dose Admin Ringer's Solution 1,000 mls @ 30 mls/hr 11/24/22 06:00 11/24/22 08:30 IV 12/23/22 23:59 30 mls/hr INFUSION GEO Administration IV Miscellaneous Supplies 1 each 11/24/22 06:00 Iv Access IV 12/23/22 23:59 DIRECTED GEO Oxycodone HCl 0 mg 11/24/22 07:15 Oxycodone 5 Mg Tab PO Q3H PRN PRN Pain Sodium Chloride 0 ml 11/24/22 06:00 Normal Saline Flush 10 Ml Syr IV 12/23/22 23:59 PRN PRN Sodium Chloride 0 ml 11/24/22 06:00 Normal Saline 10 Ml Vial IJ 12/23/22 23:59 DIRECTED PRN Sterile Water 0 ml 11/24/22 06:00 Water,Injection,Sterile 10 Ml Vial IJ 12/23/22 23:59 DIRECTED PRN PFSH Active Problems Active Problems: Problem Status Onset Code Encounter for colorectal cancer screening Z12.11, Z12.12 Plantar fasciitis M72.2 Impingement syndrome of right shoulder ~01/2021 M75.41 Pain in right acromioclavicular joint M25.511 SLAP lesion of right shoulder S43.431A Adhesive capsulitis of right shoulder M75.01 Right carpal tunnel syndrome G56.01 Arthritis of right glenohumeral joint M19.011 Medical History Medical History Bursitis of right shoulder (~01/2021) Depression Hot flashes Insomnia Lumbar back pain Normal colonoscopy (~02/2020) Panic disorder Plantar fasciitis endoscopic fasciotomy right foot 2020 Tendonitis of long head of biceps brachii of right shoulder (~01/2021) Surgical History Surgical History (Updated 11/24/22 @ 08:11 by Brynn Kruse) History of arthroscopy of right shoulder 10/2021 [facility] History of carpal tunnel release History of colonoscopy Tobacco Smoking/Tobacco Use Status: Never Alcohol Alcohol Intake: current Alcohol intake frequency: a few times a week Alcohol type: wine Substance Use Substance use: Never Substance use type: does not use Vital Signs and Lab Results Vital Signs Most Recent Vital Signs in EMR: Most Recent Vital Signs Temp Pulse Resp BP Pulse Ox 36.4 C L 85 16 125/75 96 11/24/22 08:26 11/24/22 08:26 11/24/22 08:26 11/24/22 08:26 11/24/22 08:26 Lab Results Blood Type / Crossmatch: No Data to Display Complete Blood Count: White Blood Count 5.71 10^3/uL (4.4-10.8) 10/27/22 09:08 Red Blood Count 4.22 10^6/uL (3.93-5.22) 10/27/22 09:08 Hemoglobin 13.2 g/dL (11.2-15.7) 10/27/22 09:08 Hematocrit 38.9 % (36.0-46.0) 10/27/22 09:08 Platelet Count 236 10^3/uL (130-400) 10/27/22 09:08 Complete Metabolic Panel: C-Reactive Protein < 0.05 mg/dL (0.0-0.3) 10/27/22 09:08 Liver Function Panel: No Data to Display Coagulation Panel: No Data to Display Cardiac Panel: No Data to Display Arterial Blood Gas: No Data to Display Venous Blood Gas: No Data to Display Pancreas Panel: 2 No Data to Display Thyroid Panel: No Data to Display Infectious Disease: No Data to Display Blood Cultures: No Data to Display Toxicology Panel: No Data to Display Panel: No Data to Display Anesthesia Assessment and Plan Anesthesia History Personal History: No History of Anesthesia Complications Family History: No Family History of Anesthesia Complications Exercise Tolerance Exercise Tolerance: Metabolic Equivalents>4 Pertinent Negatives Pertinent Negatives: No Symptoms of GERD, No Major Cardiovascular Symptoms or Complaints and No Major Pulmonary Symptoms or Complaints Cardiac & Pulmonary Exam Cardiac Exam: Normal S1/S2 Heart Sounds Pulmonary Exam: Clear Bilateral Breath Sounds Implantable Cardiac Device Does patient have a Pacemaker or an ICD?: No Airway Exam Known Difficult Airway: No Mallampati Class: 3 Mouth Opening: Normal (> 3cm) Thyromental Distance: Greater than 3 cm Neck Range of Motion: Full ROM Neck Circumference: Normal Teeth Condition: Normal Dentition ASA Classification ASA Score: ASA 2 Emergency Case?: No NPO Status NPO Status: NPO Clears >2 hours, Solids >8 hours Status Status: Not Relevant due to Medical History Anesthesia Plan Resuscitation Status: Full Code Anesthesia Technique: General Anesthesia Airway Planned: Natural Airway Pain Management: Surgeon and patient request nerve block Monitors Used: Standard Monitors
[2022-11-24 08:43] VITALS: BMI 26.9
[2022-11-24 09:50] VITALS: BP 84/68; PULSE 76; RESP 15; TEMP 36.3; O2SAT 96
[2022-11-24 09:56] VITALS: BP 107/59; PULSE 77; RESP 15; TEMP 36.3; O2SAT 96
[2022-11-24 10:45] VITALS: BP 116/52; PULSE 77; RESP 16; TEMP 35.9; O2SAT 100
--- NOTE | 2022-11-24 11:12 | W.ANESPOSTOP ---
Postoperative Evaluation Date, Time and Location Date Performed: 11/24/22 Time Performed: 11:09 Patient Location: Day Surgery Unit Vital Signs Most Recent Imported Vital Signs: Most Recent Vital Signs Temp Pulse Resp BP Pulse Ox 35.9 C L 77 16 116/52 L 100 11/24/22 10:45 11/24/22 10:45 11/24/22 10:45 11/24/22 10:45 11/24/22 10:45 Pain Score Most Recent Pain Score: Most Recent Pain Score Pain Level 0 11/24/22 10:45 Assessment Mental Status: Awake (Alert & Oriented to Patient Baseline) Airway and Respiratory Function: Patent airway with normal (patient baseline) respiratory exam Cardiovascular Function: Hemodynamically Stable Hydration Status: Adequately Hydrated Nausea & Vomiting: No Nausea or Vomiting Pain: Pain is tolerable per patient (Reports tender jaw from mask case) Peripheral Nerve Block: Patient did not receive a nerve block
--- NOTE | 2022-11-24 11:14 | W.ANESNERVE ---
Nerve Block Single Injection Procedure Date and Time Date Performed: 11/24/22 Procedure Start: 10:08 Location Where Procedure Performed Procedure Location: Day Surgery Unit Reason Performed: Postoperative Analgesia Requesting Provider: Gamaliel Alcantar Timeout Performed Timeout Performed: Yes Monitoring Used ECG, Blood Pressure, SpO2 and See EMR for corresponding vital signs Sterility Sterility: Hand Hygiene, Surgical Cap, Surgical Mask, Sterile Gloves and Chlorhexidine Sedation Given During Procedure Sedation Given (Indicate Dose Given): Versed IV Dose:: 2mg Patient Mental Status Patient Mental Status: Sedate with meaningful communication Nerve Block 1st Nerve Block: Laterality: Right Block Type: Interscalene Ultrasound Image Saved?: Yes Needle / Catheter Used: 80mm SonoPlex II Local Anesthetic Bolus (Indicate Dose Given): Lidocaine used for local infiltration of skin, Injected in 3-5ml increments after negative blood aspiration, Bupivacaine 0.5% Dose:: 13 mL and Exparel Dose:: 10mL Additives (Indicate Dose Given): None Ultrasound: Sterile probe cover and gel used Nerve Stimulator: Supplement to Ultrasound use and No twitch or parasthesia noted < 0.5 mA Paresthesia: None Post Procedure Pain score (0-10): 0 Procedure Tolerated: No Complications Procedure Outcome: Successful Performed By: Rosario Brar
[2022-11-24 11:17] VITALS: BP 108/51; PULSE 59; RESP 16; TEMP 36.5; O2SAT 97
== END 2022-11-24 11:35 | disposition home or self-care (01) ==
PROVIDERS: PCP Internal Medicine; Visit Provider Student in an Organized Health Care Education/Training Program
PROC: (CPT 23700; principal; 2022-11-24 09:15)
DX: M75.101 Unspecified rotator cuff tear or rupture of right shoulder, not specified as traumatic
CPT/HCPCS: 23700; 76942; J1100; J1885; J2250; J2405; J2704

== ENCOUNTER 2023-01-02 14:46 | Outpatient (REF) | payer OTHER, SELFPAY ==
--- NOTE | 2023-01-02 12:30 | PAPFT_PTH ---
PATIENT: Anne Hayes LOC: [facility]#:[id number] AGE/SX: 52/F ROOM: RE01/02/[address]: Rosie Hansen : 1970 BED: DIS: 01/02/2023 SPEC #: [id number] RECD: 01/02/23 18:16 STATUS: LARA REQ #: [id number] TABITHA: 01/02/23 12:[address]: Rosie Hansen DEPT: [facility] Cytology RECD BY: Natasha Sanchez ENTERED: 01/02/23 18:16 SP TYPE: PAPFT OTHR DR: Mark Whelan Tissues: 1 - CX/ENDOCX FOR PAP SMEARS Procedures: PAP THIN PREP/UVM Screening HPV DNA PROBE Comments: [id number]
[2023-01-02 16:11] LABS: Calculated LDL 147 mg/dL (<100); Cholesterol 237 mg/dL (<200); HDL Cholesterol 56 mg/dL (40-60); Triglyceride 173 mg/dL (<150)
== END 2023-01-02 14:47 | disposition home or self-care (01) ==
LOC: NCHCN 14:46
PROVIDERS: PCP Internal Medicine; Visit Provider Nurse Practitioner Family
DX: Z00.00 Encounter for general adult medical examination without abnormal findings (principal); R53.83 Other fatigue; F41.0 Panic disorder [episodic paroxysmal anxiety]; F32.89 Other specified depressive episodes; Z13.220 Encounter for screening for lipoid disorders; Z12.4 Encounter for screening for malignant neoplasm of cervix; Z11.51 Encounter for screening for human papillomavirus (HPV)
CPT/HCPCS: 80061; 88142; 87624

== ENCOUNTER 2023-01-05 00:46 | Outpatient (CLI) | payer OTHER, SELFPAY ==
--- NOTE | 2023-01-05 14:09 | DI.RAD_ITS ---
Exam(s) RF JOINT INJECTION FLUORO GUID EXAM: RF JOINT INJECTION FLUORO GUID CLINICAL HISTORY: R SHOULDER PAIN,INJ UNDER FLUORO,SLAP LESION,IMPINGEMENT SYN,CAPSULITIS TECHNIQUE: 2D and realtime digital imaging was performed. CONTRAST MATERIAL: Refer to procedure report. COMPARISON: No exams were available for comparison FINDINGS: Fluoroscopy was provided for Dr. Alcantar during the performance of a right shoulder injection. Please refer to the procedure report for complete details. Ka,r=0.24 mGy IMPRESSION: RADIATION DOSE DELIVERED:
[2023-01-05] MEDS: methylPREDNISolone ACETATE 80 MG/ML VIAL IM (14:11)
[2023-01-05] MEDS: Bupivacaine 0.5% Pres-Free 10 ML VIAL 5 ML IJ (14:13)
[2023-01-05] MEDS: Omnipaque 300 MG/ML 10 ML BTL IJ (14:14)
--- NOTE | 2023-01-05 14:51 | OPPNE_ITS ---
Date of service: 01/05/23 Time of Service: 14:10 Procedure Note Date of procedure: 01/05/23 Procedure: Right Shoulder Injection Surgeon/Proceduralist/Physician: Stan Freedman Procedure Diagnosis: Right Shoulder Pain, Glenohumeral Arthritis Procedure Indications: Anne has had persistent pain and stiffness of the RIGHT shoulder. Noninvasive measures have been tried. To serve as both diagnostic and therapeutic, an injection under fluoroscopy was recommended. I had discussed the risks of the procedure and the patient elected to proceed. Procedure Description: Anne was greeted in the flouroscopy room. The correct side was identified and the consent was reviewed with the patient and signed. The patient was then p laced in the supine position on the fluoroscopy table. The RIGHT shoulder was then prepped with Chloraprep. The anterior injection starting point was identiifed by bony landmarks and fluoroscopy. The skin and soft tissue in the tract of the injection was anesthetized with 1% Lidocaine. A spinal needle was then inserted deep into the shoulder joint at the level of the recess between the glenoid and superior humeral head. A small amount of Omnipaque solution was injected to confirm intraarticular placement. Once confirmed, the shoulder was injected with 5cc of 0.5% Bupivicaine and 80mg of Depo-Medrol. A bandaid was placed on the injection site. The patient tolerated the procedure well and noted some improvement in pre-injection pain.
== END 2023-01-05 01:06 ==
LOC: DI 00:46
PROVIDERS: PCP Internal Medicine; Visit Provider Student in an Organized Health Care Education/Training Program
DX: M19.011 Primary osteoarthritis, right shoulder (principal); M75.01 Adhesive capsulitis of right shoulder; M75.41 Impingement syndrome of right shoulder; S43.431A Superior glenoid labrum lesion of right shoulder, initial encounter; X58.XXXA Exposure to other specified factors, initial encounter
CPT/HCPCS: 20610; 77002; J1040

== ENCOUNTER 2023-02-07 03:51 | Emergency (ER) | payer OTHER, SELFPAY ==
[2023-02-07 03:54] VITALS: BP 102/51; PULSE 114; RESP 16; TEMP 36.8; O2SAT 99
--- NOTE | 2023-02-07 04:11 | W.ED.GENAD ---
Discharge Plan Disposition Patient Disposition: Home Condition: Stable Discharge Details Clinical Impression: Acute streptococcal pharyngitis Primary Care Provider: Mark Whelan ED Provider: Laith Germain Home Meds and New Rx's Prescriptions: New azithromycin 250 mg tablet 250 mg PO DAILY 4 Days Qty: 4 0RF No Action sumatriptan succinate 50 mg tablet 50 mg PO ONCE acetylcysteine [NAC] 600 mg capsule 600 mg PO DAILY Daily Multiple 1 EACH tablet 1 ea PO DAILY amitriptyline 10 mg tablet 10 mg PO HS paroxetine HCl 30 mg tablet 30 mg PO DAILY buspirone 5 mg tablet 10 mg PO TID Discharge Instructions Instructions: Pharyngitis (ED) Stand Alone Forms: Work Release Medical Decision Making 52-year-old female presents with sore throat of the past several days, right ear pressure, mild to moderate tachycardia on arrival however nontoxic, not hypoxic no respiratory distress, tolerating secretions normal voice no stridor. Posterior oropharynx moderately erythematous. Midline uvula no evidence of deep space infection of head or neck. Consider viral pharyngitis versus strep pharyngitis versus viral URI low suspicion for pneumonia Strep swab positive. Patient has severe penicillin allergy will use azithromycin. We will also trial dexamethasone. Home care instructions and return precautions given HPI General Date/Time Provider Initiated Documentation: 02/07/23 03:55. HPI Narrative: 52-year-old female presents with sore throat over the past several days. Related Data Home Medications Medication Instructions Recorded Confirmed multivitamin-ferrous 1 ea PO DAILY 12/19/13 12/06/22 fumarate-folic acid 18 mg-400 mcg tablet (Daily Multiple) amitriptyline 10 mg tablet 10 mg PO HS 07/15/21 12/06/22 paroxetine HCl 30 mg tablet 30 mg PO DAILY 07/15/21 12/06/22 buspirone 5 mg tablet 10 mg PO TID 10/04/22 12/06/22 acetylcysteine 600 mg capsule (NAC) 600 mg PO DAILY 11/08/22 12/06/22 sumatriptan succinate 50 mg tablet 50 mg PO ONCE 11/08/22 12/06/22 azithromycin 250 mg tablet 250 mg PO DAILY 4 days #4 tabs 02/07/23 Previous Rx's Medication Instructions Recorded azithromycin 250 mg tablet 250 mg PO DAILY 4 days #4 tabs 06/06/23 Allergies Allergy/AdvReac Type Severity Reaction Status Date / Time Penicillins Allergy Severe Anaphylaxis Verified 01/18/23 13:21 General Stated Complaint: Sorethroat SONJA: 4 Review of Systems Narrative: Sore throat PFSH All Active Problems (Updated 02/07/23 @ 04:13 by Laith Germain MD) Acute streptococcal pharyngitis (Acute) Encounter for colorectal cancer screening (Acute) Plantar fasciitis (Acute) Impingement syndrome of right shoulder (Acute ~01/2021) Pain in right acromioclavicular joint (Acute) SLAP lesion of right shoulder (Acute) Adhesive capsulitis of right shoulder (Acute) Right carpal tunnel syndrome (Acute) Arthritis of right glenohumeral joint (Acute) Medical History (Updated 02/07/23 @ 04:13 by Laith Germain MD) Bursitis of right shoulder (~01/2021) Depression Hot flashes Insomnia Lumbar back pain Normal colonoscopy (~02/2020) Panic disorder Plantar fasciitis endoscopic fasciotomy right foot 2020 Tendonitis of long head of biceps brachii of right shoulder (~01/2021) Surgical History (Updated 11/24/22 @ 08:11 by Brynn Kruse) History of arthroscopy of right shoulder 10/2021 [facility] History of carpal tunnel release History of colonoscopy Family History Father Diabetes type 2, controlled Mother Carotid artery disease Social History Smoking/Tobacco Use Status: Never Smoking risk assessment performed?: Yes Alcohol Intake: current Alcohol Intake frequency: a few times a week Alcohol type: wine Drug use: Never Substance use type: does not use Current gender identity: female Do you feel safe at home: Yes Do you feel safe in your relationship?: Yes Exam Narrative Exam Narrative: Physical Examination General: alert, awake, cooperative, resting comfortably, no acute distress HEENT: normocephalic, atraumatic; PERRL, EOM intact, conjunctiva normal; no nasal discharge; moist mucous membranes, erythema to posterior oropharynx, midline uvula, tolerating secretions, normal voice; TMs clear bilaterally Neck: supple, trachea midline; full ROM Chest: normal to inspection Respiratory: normal respiratory effort, speaking in full sentences, clear to auscultation, no wheezing, rales or rhonchi Cardiac: regular rate, regular rhythm, S1S2 intact, no murmurs rubs or gallops GI: abdomen soft, non-tender, non-distended; no palpable mass or hepatosplenomegaly Skin: no lesions, rashes or trauma appreciated Neuro: AAOx3, normal speech, moving all extremities Psych: Appropriate mood and affect Course Vital Signs Vital signs: Vital Signs Temperature 36.8 C 02/07/23 03:54 Pulse 114 H 02/07/23 03:54 Respiratory Rate 16 02/07/23 03:54 Blood Pressure 102/51 L 02/07/23 03:54 Pulse Oximetry 99 02/07/23 03:54 Temperature 36.8 C 02/07/23 03:54 Temperature Source Oral 02/07/23 03:54 Pulse 114 H 02/07/23 03:54 Respiratory Rate 16 02/07/23 03:54 Respiratory Effort Normal, Non-Labored 02/07/23 03:57 Blood Pressure 102/51 L 02/07/23 03:54 Blood Pressure Position Sitting 02/07/23 03:54 Pulse Oximetry 99 02/07/23 03:54 Oxygen Delivery Method Room Air 02/07/23 03:54 Oxygen Flow Rate 0 02/07/23 03:54 Pain Level 8 02/07/23 03:54 Lab/Test Results Lab/Test Results: POC Strep Test-SANA(Rapid) Start: 02/07/23 04:10 Freq: Status: Active Protocol: Document 02/07/23 04:10 RL (Rec: 02/07/23 04:10 RL [id number]) Strep test-SANA(Rapid)-POC POC-Strep test-SANA (Rapid) Positive POC-Strep test-SANA (Rapid) Positive
[2023-02-07] MEDS: Azithromycin 250 MG TAB 500 MG PO (04:19)
[2023-02-07] MEDS: Dexamethasone 10 MG/ML VIAL PO (04:19)
== END 2023-02-07 04:23 | disposition home or self-care (01) ==
PROVIDERS: Emergency Provider Emergency Medicine; PCP Internal Medicine
DX: J02.0 Streptococcal pharyngitis (principal)
CPT/HCPCS: 87880; 99283; 99284; J1100

== ENCOUNTER 2023-03-20 15:23 | Outpatient (REF) | payer OTHER, SELFPAY ==
--- NOTE | 2023-03-20 12:30 | SKI_PTH ---
PATIENT: Anne Hayes LOC: [facility]#:[id number] AGE/SX: 52/F ROOM: RE03/20/[address]: Rosie Hansen : 1970 BED: DIS: 03/20/2023 SPEC #: [id number] RECD: 03/20/23 16:59 STATUS: LARA RETracy #: [id number] TABITHA: 03/20/23 12:[address]: Rosie Hansen DEPT: Surgical Specimen RECD BY: Lynnette Moya ENTERED: 03/20/23 17:01 SP TYPE: AGNIESZKA MERCER DR: Mark Whelan Tissues: 1 - SKIN BIOPSY(SHAVE/PUNCH) Procedures: SKIN LEVEL 4 Comments: [id number]
== END 2023-03-20 15:24 | disposition home or self-care (01) ==
LOC: NCHCN 15:23
PROVIDERS: PCP Internal Medicine; Visit Provider Nurse Practitioner Family
DX: D22.9 Melanocytic nevi, unspecified (principal)
CPT/HCPCS: 88305

== ENCOUNTER 2023-03-21 15:35 | Outpatient (CLI) | payer OTHER, SELFPAY ==
--- NOTE | 2023-03-21 15:15 | DI.RAD_ITS ---
Exam(s) XR SHOULDER RT COMPLETE 2+V EXAM: XR SHOULDER RT COMPLETE 2+V CLINICAL HISTORY: right shoulder pain. TECHNIQUE: 2D digital imaging was performed. Two views. COMPARISON: CR XR SHOULDER RT COMPLETE 2+V from 07/28/2021 FINDINGS: BONES: No acute fracture is present. No bony destructive lesion is seen. Degenerative cysts in the h umeral head. JOINTS: No dislocation present. Severe narrowing of the glenohumeral joint, worsening from prior exa m. Inferior spurring at the humeral head. Mild glenoid deformity and spurring. SOFT TISSUE: Normal. IMPRESSION: Advanced degenerative changes of the glenohumeral joint. DATA REPOSITORY: RADIATION DOSE DELIVERED:
== END 2023-03-21 15:36 | disposition home or self-care (01) ==
LOC: DIORS 15:36
PROVIDERS: PCP Internal Medicine; Referring Provider Internal Medicine; Visit Provider Physician Assistant
DX: M19.011 Primary osteoarthritis, right shoulder (principal)
CPT/HCPCS: 73030

== ENCOUNTER → 2023-05-10 02:11 | Outpatient (CLI) | payer OTHER, SELFPAY ==
--- NOTE | 2023-05-10 | DI.MAMMO_ITS ---
Exam(s) MAMMO SCREENING EXAM: MAMMO SCREENING CLINICAL HISTORY: SCREENING MAMMO Z12.31. TECHNIQUE: Bilateral full field digital CC and MLO mammographic images were obtained with 3D tomosyn thesis and utilizing computer aided detection (CAD). COMPARISON: Prior mammograms were reviewed. FINDINGS: There has been no significant change in the appearance and distribution of the fibroglandular tissue. There are no new spiculated masses nor malignant appearing microcalcification groups. There is no significant architectural distortion nor skin thickening-retraction. IMPRESSION: No radiographic evidence of malignancy. BI-RADS Category 1 - Negative Breast Density - Category C - Heterogeneously dense Breast density Category C or D implies that the patient has dense breast tissue. Dense breast tissue can make it harder to find cancer on a mammogram. Dense breast tissue is also associated with an incr eased risk of breast cancer. This information about the result of the mammogram report was provided to the patient to raise their awareness. Use this report when you speak with the patient about their risks for breast cancer, which includes their family history. At that time, you may recommend additional screening tests (Ultrasoun d or MRI) as these tests may add significant information. A negative radiographic report should not delay biopsy if a dominant or clinically suspicious mass is present. Up to ten percent of cancers are not identified on mammography. A negative report may reinforce clinical impression. Adenosis and dense breasts may obscure an underlying neoplasm. False positive reports average 6 to 10%. Patient will receive a letter notifying them of these results.
== END ==
PROVIDERS: PCP Internal Medicine; Visit Provider Nurse Practitioner Family
DX: Z12.31 Encounter for screening mammogram for malignant neoplasm of breast (principal)
CPT/HCPCS: 77063; 77067

== ENCOUNTER 2023-05-11 05:49 | Day surgery (SDC) | payer OTHER, SELFPAY ==
[2023-05-11] VITALS (11 sets, daily range): BP systolic 104–134; BP diastolic 35–75; PULSE 71–88; RESP 14–18; TEMP 36.2–36.7; O2SAT 94–99; BMI 26.8
[2023-05-11] MEDS: Lactated Ringers 1,000 ML 80 ML IV ×2 (06:20→12:12)
--- NOTE | 2023-05-11 06:31 | ANES.PREOP_ITS ---
General Info Date of Service Date Performed: 05/11/23 Height: 5 ft 7 in Weight: 77.7 kg Body Mass Index (BMI): 26.8 Surgical Procedure: Operation Date: 05/11/23 07:40 Proposed Procedure Side Surgeon p Shoulder Total Arthroplasty, Reverse vs Anatomic Right Gamaliel Alcantar MD Meds Allergies and Home Medications Allergies Allergy/AdvReac Type Severity Reaction Status Date / Time Penicillins Allergy Severe Anaphylaxis Verified 05/09/23 15:31 Home Medication Medication Instructions Recorded multivitamin-ferrous 1 ea PO DAILY 12/19/13 fumarate-folic acid 18 mg-400 mcg tablet (Daily Multiple) amitriptyline 10 mg tablet 10 mg PO HS 07/15/21 paroxetine HCl 30 mg tablet 30 mg PO DAILY 07/15/21 buspirone 5 mg tablet 10 mg PO TID 10/04/22 acetylcysteine 600 mg capsule (NAC) 600 mg PO DAILY 11/08/22 sumatriptan succinate 50 mg tablet 50 mg PO ONCE 11/08/22 aspirin 81 mg tablet,delayed 81 mg PO DAILY Prevent blood clot 05/11/23 release 14 days #14 tabs naproxen 250 mg tablet 250 - 500 mg PO BID PRN Moderate 05/11/23 pain #40 tabs oxycodone 5 mg tablet 5 - 10 mg PO Q4H PRN Moderate to 05/11/23 severe pain #18 tabs Current Visit Medications: Current Medications Generic Name Dose Route Start Last Admin Trade Name Freq PRN Reason Stop Dose Admin Ringer's Solution 1,000 mls @ 80 mls/hr 05/11/23 06:00 05/11/23 06:20 IV 06/09/23 23:59 80 mls/hr INFUSION GEO Administration Cefazolin Sodium/Dextrose 2 gm in 50 mls @ 100 mls/hr 05/11/23 06:00 Ancef Duplex IVPB 06/09/23 23:59 PREOP GEO Tranexamic Acid 1,000 mg/ 60 mls @ 360 mls/hr 05/11/23 06:00 Sodium Chloride IVPB 05/11/23 18:00 PREOP GEO IV Miscellaneous Supplies 1 each 05/11/23 06:00 Iv Access IV 06/09/23 23:59 DIRECTED GEO Sodium Chloride 0 ml 05/11/23 06:00 Normal Saline Flush 10 Ml Syr IV 06/09/23 23:59 PRN PRN Sodium Chloride 0 ml 05/11/23 06:00 Normal Saline 10 Ml Vial IJ 06/09/23 23:59 DIRECTED PRN Sterile Water 0 ml 05/11/23 06:00 Water,Injection,Sterile 10 Ml Vial IJ 06/09/23 23:59 DIRECTED PRN PFSH Active Problems Active Problems: Problem Status Onset Code Encounter for colorectal cancer screening Z12.11, Z12.12 Plantar fasciitis M72.2 Impingement syndrome of right shoulder ~01/2021 M75.41 Pain in right acromioclavicular joint M25.511 SLAP lesion of right shoulder S43.431A Adhesive capsulitis of right shoulder M75.01 Right carpal tunnel syndrome G56.01 Arthritis of right glenohumeral joint M19.011 Medical History Medical History Bursitis of right shoulder (~01/2021) Depression Hot flashes Insomnia Lumbar back pain Normal colonoscopy (~02/2020) Panic disorder Plantar fasciitis endoscopic fasciotomy right foot 2020 Tendonitis of long head of biceps brachii of right shoulder (~01/2021) Surgical History Surgical History History of arthroscopy of right shoulder 10/2021 [facility] History of carpal tunnel release History of colonoscopy Tobacco Smoking/Tobacco Use Status: Never Alcohol Alcohol Intake: current Alcohol intake frequency: a few times a week Alcohol type: wine Substance Use Substance use: Never Substance use type: does not use Vital Signs and Lab Results Vital Signs Most Recent Vital Signs in EMR: Most Recent Vital Signs Temp Pulse Resp BP Pulse Ox 36.3 C L 88 16 134/54 L 95 05/11/23 06:01 05/11/23 06:01 05/11/23 06:01 05/11/23 06:01 05/11/23 06:01 Lab Results Blood Type / Crossmatch: No Data to Display Complete Blood Count: No Data to Display Complete Metabolic Panel: No Data to Display Liver Function Panel: No Data to Display Coagulation Panel: No Data to Display Cardiac Panel: No Data to Display Arterial Blood Gas: No Data to Display Venous Blood Gas: No Data to Display Pancreas Panel: No Data to Display Thyroid Panel: No Data to Display Infectious Disease: No Data to Display Blood Cultures: No Data to Display Toxicology Panel: No Data to Display Panel: No Data to Display Anesthesia Assessment and Plan Anesthesia History Personal History: No History of Anesthesia Complications Family History: No Family History of Anesthesia Complications Exercise Tolerance Exercise Tolerance: Metabolic Equivalents>4 Pertinent Negatives Pertinent Negatives: No Symptoms of GERD Cardiac & Pulmonary Exam Cardiac Exam: Normal S1/S2 Heart Sounds Pulmonary Exam: Clear Bilateral Breath Sounds Implantable Cardiac Device Does patient have a Pacemaker or an ICD?: No Airway Exam Known Difficult Airway: No Mallampati Class: 3 Mouth Opening: Normal (> 3cm) Thyromental Distance: Greater than 3 cm Neck Range of Motion: Full ROM Neck Circumference: Normal Teeth Condition: Normal Dentition ASA Classification ASA Score: ASA 2 Emergency Case?: No NPO Status NPO Status: NPO Clears >2 hours, Solids >8 hours Status Status: Negative HCG Anesthesia Plan Resuscitation Status: Full Code Anesthesia Technique: General Anesthesia Airway Planned: Endotracheal Tube Pain Management: Surgeon and patient request nerve block Monitors Used: Standard Monitors
--- NOTE | 2023-05-11 07:04 | W.PM.DSUDISC ---
Date of service: 05/11/23 Time of Service: 15:00 Discharge Plan Disposition Patient Disposition: Home Condition: Stable Discharge Details Attending Provider: Gamaliel Alcantar Primary Care Provider: Mark Whelan Home Meds and New Rx's Prescriptions: New naproxen 250 mg tablet 250 - 500 mg PO BID PRN (Reason: Moderate pain) Qty: 40 0RF oxycodone 5 mg tablet 5 - 10 mg PO Q4H PRN (Reason: Moderate to severe pain) Qty: 18 0RF aspirin 81 mg tablet,delayed release (DR/EC) 81 mg PO DAILY 7 Days Qty: 7 0RF Continued sumatriptan succinate 50 mg tablet 50 mg PO ONCE acetylcysteine [NAC] 600 mg capsule 600 mg PO DAILY Daily Multiple 1 EACH tablet 1 ea PO DAILY amitriptyline 10 mg tablet 10 mg PO HS paroxetine HCl 30 mg tablet 30 mg PO DAILY buspirone 5 mg tablet 10 mg PO TID Discharge Instructions Additional Instructions: Surgery: Right reverse total shoulder arthroplasty (subscap repair, rotator cuff preserved) with revision biceps tenodesis Activity: Do not lift anything heavier than a coffee. You should keep your arm at your side in a neutral position at all times except for gentle range of motion exercises, physical therapy, and essential activities. You should use the sling whenever you are out of the house. You may have to adjust the abduction pillow or remove it for comfort. At home it is best to remove the sling and rest the arm on a pillow at your side or support the operative side with your other hand. A physical therapy prescription will be sent electronically to start in about 3 weeks. Subscap/rotator cuff repair Reverse TSA Protocol: No AROM for 6 weeks. Prescriptions: Aspirin 81 mg take 1 daily to prevent a blood clot for 7 days Naproxen 250 mg take 1-2 every 12 hours with a meal as needed for moderate pain Oxycodone 5 mg take 1-2 every 4-6 hours as needed for severe pain You may use vsdf-lec-rieklwn Tylenol (acetaminophen) as needed for mild pain. These pain medications may be taken all at once or in different combinations as needed. Also, recommend Colace (docusate) as a stool softener as surgery and pain medicine cause constipation. You may try [id number]-[id number] diphenhydramine (Benadryl) 25-50 mg nightly as a sleep aid Dressings: Leave dressing in place until follow-up. Keep clean and dry at all times. No showers please. Follow-up: 10-[address] Alcantar You may take off the leg compression stockings this evening at home. You may also leave them on a few days longer if you have a history of leg swelling or edema. Please call the office during business hours with any questions or concerns. Let us know right away if you develop any redness, drainage, fevers, chest pain, or trouble breathing. Do not drink alcohol or drive for at least 24 hours after anesthesia. Discharge Orders Discharge Orders: Discharge Order (Routine); Ordered 05/11/23 Ordered By: Castro Martinez DS: Diagnosis Discharge Diagnosis (1) Arthritis of right glenohumeral joint: Status: Acute
--- NOTE | 2023-05-11 07:14 | W.PM.OP ---
Date of service: 05/11/23 Time of Service: 07:30 Operative Note Operative Note DATE OF PROCEDURE: 05/11/23 PRE-OP DIAGNOSIS: Right: 1. End-stage glenohumeral arthritis 2. Previous arthroscopic biceps tenodesis POST-OP DIAGNOSIS: same PROCEDURE: Right: 1. Reverse total shoulder arthroplasty, CPT # 64866 2. Open revision biceps tenodesis, CPT # 79297 The trust manager assistant was medically required as this procedure involves retraction, protection of neurovascular structures, and manipulation of multiple instruments and implants at the same time, which cannot be done without a skilled trust manager assistant. SURGEON: Gamaliel Alcantar DIPLOMATIC COURIER: Castro Martinez ANESTHESIA TYPE: Local By Surgeon, General LMA/ETT and Primary Nerve Block Refer to Anesthesia Record ESTIMATED BLOOD LOSS: 150 COMPLICATIONS: None Patient was transported to: PACU Patient's condition: stable Implants: [employer] modular glenoid system baseplate 24 mm full wedge 10 degree augment [employer] modular glenoid system central post 20 mm [employer] modular glenoid system peripheral locking screws 36 mm inferior, 24 mm superior, 16 mm posterior, 16 mm anterior [employer] modular glenoid system glenosphere 36 +4 mm lateralized [employer] humeral stem 135 degrees size 7 [employer] suture cup size 36 posterior offset [employer] humeral insert size 36+6 mm Indications: Please see complete medical record for details. Findings: Largely intact subscapularis with moderate anterior capsular contracture. Intact previous arthroscopic biceps tenodesis with suture anchor remnant at the superiormost aspect of the bicipital groove. Largely intact supraspinatus with some leading edge minor tear. High-grade humeral head and glenoid cartilage loss and deformity. Significantly diminutive glenoid with posterior erosion and retroversion as expected. Procedure Description: In the operating room, general anesthesia was induced. The patient was positioned beachchair on the operating room table. All bony prominences were well-padded. Preoperative antibiotics were administered. The shoulder was prepped and draped in the usual sterile fashion for shoulder arthroplasty. The correct patient, procedure, and side of the procedure were all verified prior to incision. The deltopectoral approach was preinjected with local anesthetic containing epinephrine and taken to the anterior shoulder. Care was taken to bluntly dissect the interval between the deltoid and pectoralis major muscles and to identify the cephalic vein within its fat stripe. The the vein was mobilized medially. Subdeltoid space and conjoined tendon were freed of adhesions. The long head of the biceps tendon was identified just lateral to the lesser tuberosity. The uppermost margin of the pectoralis major tendon was released from the proximal humerus. The long head of the biceps tendon was followed proximally just into the joint at the rotator interval to the previous tenodesis site. It was tagged and secured with a suture tape adjacent to the lesser tuberosity and subscapularis for later repair. The rotator interval was opened. A subscapularis peel was performed taking care to release the entire tendon in a full-thickness fashion from superior to inferior and lateral to medial while bringing the arm gradually into external rotation. Care was taken to avoid the axillary nerve by only working on the bone inferiorly and medially. The subscapularis was tagged using SutureTape in a Raheem-Aidan fashion and traction used confirm appropriate mobilization of the subscapularis tendon after gentle blunt dissection was used to free up the space anterior and posterior to it. The supraspinatus was debrided of minor anterior leading edge partial thickness tearing. Appropriate coagulation was achieved especially interiorly. The permanent suture material from the tenodesis was removed with a rongeur. Rongeur was also used to obtain some surrounding soft tissue samples. The anatomic neck was cut using an oscillating saw. The suture anchor remnant was exposed and remaining parts removed with a rongeur. Some synovitis was then brought to the back table with the suture anchor, retained suture, and some bone and divided into the samples for cultures given revision surgery setting rule out indolent Propionibacterium infection. The proximal humerus was then delivered with external rotation. The proximal humeral protection plate was used to provisionally confirm suture cup and glenosphere size. Reamers were started appropriately posterior to the bicipital groove taking care to maintain in line approach with the humeral canal. Sequential reaming was done from size 5 up to size 7. Next, the broaches were sequentially used to open the proximal humerus starting with a size 5 and going up to size 7 and sunk to the appropriate depth while maintaining approximately 20 degrees retroversion. There was good metaphyseal fit and rotational control of the proximal humerus with this size. This size also allowed the planned inlay suture cup fit. Attention was then turned to the glenoid and retractors were placed and a circumferential release performed using the long head of the biceps remnant to remove soft tissue about the glenoid rim. Care was taken inferiorly to work on bone only between 5 and 7:00 o'clock and bluntly elevate tissues inferiorly. The VIP guide was placed on the glenoid and used to confirm placement and trajectory of the central guidepin, which was placed through the 10 degree augment guide. The guidepin was inserted and advanced just through the far cortex ensuring adequate central fixation length. Depth gauge was used to confirm length. The glenosphere sizer was used to confirm positioning and glenosphere size. The eccentric backside of the baseplate reamer was then used. The glenoid preparation was challenging given the retroversion combined with rotator cuff preservation and significantly diminutive glenoid with the instruments being about the same size as the glenoid as expected from medial to lateral and inferior making space and accommodating for preparation and sharing space with retractors more difficult than usual. There was appropriate preparation of the glenoid especially anteriorly and inferiorly. The 20 mm central post drill was used and withdrawn with the guidewire. Socket visualized in the glenoid. The baseplate was impacted and fully compressed onto the glenoid surface maintaining the augment in the correct position. The locking guide was then used to drill and place appropriately lengthed inferior, superior, anterior, and posterior screws. The [id number]-[id number] reamer was used to confirm adequate peripheral reaming. The glenosphere was applied with the clinical information systems director and then impacted to engage the Davila taper. It was then locked with appropriate countersinking of the setscrew. The glenosphere was inspected and found to have good fit, appropriate positioning, and no soft tissue or bony impingement. Attention was then turned back to the proximal humerus, which was delivered from the wound and maintained in external rotation. The posterior offset guide was used to ream for the suture cup. The humeral trial cup was connected. Trialing was commenced with +3 mm liner. The shoulder was reduced and taken through range of motion. Trial components were built up to +6 mm liner to achieve good stability and excellent tension on the deltoid and conjoined tension. The trial components were removed from the proximal humerus. The wound was copiously irrigated with normal saline. A 2 mm drill was used to drill 2 drill holes in the bicipital groove and lesser tuberosity for later subscapularis repair. The the proximal humeral stem and suture cup were assembled and brought over the proximal humerus. Suture tapes were placed superiorly inferiorly at the medial and lateral aspect of the suture cup. The lateral tapes were brought out the drill holes. A small amount of vancomycin powder was distributed in the proximal humerus. The humeral component and suture cup were impacted into place. The final liner was then connected, and range of motion, stability, and tension confirmed. The shoulder was copiously irrigated with Betadine and normal saline. Vancomycin powder was distributed deeply about the shoulder and through subcutaneous tissues. The arm was placed in about 30 degrees of external rotation. The subscapularis was reduced and repaired using the pairs of SutureTape in a speed bridge type configuration. The arm was taken into more external rotation without any displacement of the subscapularis repair. The deltopectoral interval was well approximated and closed burying the cephalic vein with a single [id number] 0 Vicryl. Subcutaneous tissue was irrigated then closed using 2-0 Monocryl in a buried interrupted fashion. Skin was closed using 3-0 Monocryl in a buried subcuticular fashion. Skin glue was applied to the incision. A silver impregnated bandage was placed over the incision. The extremity was placed into a shoulder immobilizer. The patient awoke from anesthesia without complication and was taken to the recovery room in stable condition.
[2023-05-11] MEDS: ceFAZolin 2 GM/50 ML BAG IVPB (07:49)
--- NOTE | 2023-05-11 08:19 | W.ANESNERVE ---
Nerve Block Single Injection Procedure Date and Time Date Performed: 05/11/23 Procedure Start: 07:19 Location Where Procedure Performed Procedure Location: Day Surgery Unit Reason Performed: Postoperative Analgesia Requesting Provider: Gamaliel Alcantar Timeout Performed Timeout Performed: Yes Monitoring Used ECG, Blood Pressure, SpO2 and ETCO2 Sterility Sterility: Hand Hygiene, Surgical Cap, Surgical Mask, Sterile Gloves and Chlorhexidine Sedation Given During Procedure Sedation Given (Indicate Dose Given): Versed IV Dose:: 2 mg Patient Mental Status Patient Mental Status: Sedate with meaningful communication Nerve Block 1st Nerve Block: Laterality: Right Block Type: Interscalene Ultrasound Image Saved?: Yes Needle / Catheter Used: 100mm SonoPlex II Local Anesthetic Bolus (Indicate Dose Given): Lidocaine used for local infiltration of skin, Injected in 3-5ml increments after negative blood aspiration, Bupivacaine 0.5% Dose:: 10 ml and Exparel Dose:: 10 ml Additives (Indicate Dose Given): Normal Saline (hydodissection) Ultrasound: Sterile probe cover and gel used Nerve Stimulator: Supplement to Ultrasound use and No twitch or parasthesia noted < 0.5 mA Paresthesia: None Procedure Tolerated: No Complications and Patient tolerated well Procedure Outcome: Successful Performed By: Otis Marcus
--- NOTE | 2023-05-11 11:00 | DI.RAD_ITS ---
Exam(s) XR SHOULDER RT COMPLETE 2+V EXAM: XR SHOULDER RT COMPLETE 2+V CLINICAL HISTORY: Shoulder Arthritis. TECHNIQUE: 2D digital imaging was performed. COMPARISON: CR XR SHOULDER RT COMPLETE 2+V from 03/21/2023 FINDINGS: Two views: Satisfactory position alignment of the components of the newly placed reverse prosthesis. No fractur e or loosening evident. IMPRESSION: Satisfactory postop appearance. DATA REPOSITORY: RADIATION DOSE DELIVERED:
[2023-05-11] MEDS: Bupivacaine 0.25% Pres-Free 30 ML VIAL (11:21)
[2023-05-11] MEDS: EPINEPHrine 30 MG/30 ML VIAL (11:22)
[2023-05-11] MEDS: ceFAZolin 1 GM/50 ML BAG IVPB (11:28)
--- NOTE | 2023-05-11 12:50 | W.ANESPOSTOP ---
Postoperative Evaluation Date, Time and Location Date Performed: 05/11/23 Time Performed: 12:50 Patient Location: PACU Vital Signs Most Recent Imported Vital Signs: Most Recent Vital Signs Temp Pulse Resp BP Pulse Ox 36.7 C 74 16 116/62 97 05/11/23 12:35 05/11/23 12:35 05/11/23 12:35 05/11/23 12:35 05/11/23 12:35 Pain Score Most Recent Pain Score: Most Recent Pain Score Pain Level 0 05/11/23 12:35 Assessment Mental Status: Awake (Alert & Oriented to Patient Baseline) Airway and Respiratory Function: Patent airway with normal (patient baseline) respiratory exam Cardiovascular Function: Hemodynamically Stable Hydration Status: Adequately Hydrated Nausea & Vomiting: No Nausea or Vomiting Pain: Pt. Denies Any Pain Peripheral Nerve Block: Regional nerve block not resolved at time of post operative discharge
== END 2023-05-11 14:40 | disposition home or self-care (01) ==
PROVIDERS: PCP Internal Medicine; Visit Provider Student in an Organized Health Care Education/Training Program
PROC: (CPT 23472; principal; 2023-05-11 07:30)
DX: M19.011 Primary osteoarthritis, right shoulder (principal); F32.A Depression, unspecified; F41.0 Panic disorder [episodic paroxysmal anxiety]; M75.41 Impingement syndrome of right shoulder; M75.01 Adhesive capsulitis of right shoulder
CPT/HCPCS: 23472; 76942; 73030; 87070; 87075; 87205; C1781; J0131; J0690; J1100; J2001; J2250; J2371; J2405

== ENCOUNTER 2023-05-23 11:49 | Outpatient (CLI) | payer OTHER, SELFPAY ==
--- NOTE | 2023-05-23 08:00 | DI.RAD_ITS ---
Exam(s) XR SHOULDER RT COMPLETE 2+V EXAM: XR SHOULDER RT COMPLETE 2+V CLINICAL HISTORY: S/P RIGHT RTSA. TECHNIQUE: 2D digital imaging was performed of the right shoulder. Two images were obtained. AP an d Y views were obtained. COMPARISON: CR XR SHOULDER RT COMPLETE 2+V from 05/11/2023 FINDINGS: BONES: No acute fracture is present. No bony destructive lesion is seen. JOINTS: No dislocation present. There are stable postsurgical changes of a right total reverse should er replacement. There is no evidence of hardware failure. SOFT TISSUE: Normal. IMPRESSION: Stable right total reverse shoulder replacement. DATA REPOSITORY: RADIATION DOSE DELIVERED:
== END 2023-05-23 11:50 | disposition home or self-care (01) ==
LOC: DIORS 11:49
PROVIDERS: PCP Internal Medicine; Visit Provider Physician Assistant
DX: Z96.611 Presence of right artificial shoulder joint (principal); Z47.1 Aftercare following joint replacement surgery; Z98.890 Other specified postprocedural states
CPT/HCPCS: 73030

== ENCOUNTER 2024-02-15 21:22 | Outpatient (REF) | payer OTHER, SELFPAY | END 2024-02-15 21:23 | disposition home or self-care (01) | LOC: LBN 21:22 | PROVIDERS: PCP Nurse Practitioner Family; Visit Provider Physician Assistant Medical | DX: J02.9 Acute pharyngitis, unspecified (principal) | CPT/HCPCS: 87070 ==

== ENCOUNTER 2024-05-14 14:09 | Outpatient (CLI) | payer OTHER, SELFPAY ==
--- NOTE | 2024-05-14 07:45 | DI.RAD_ITS ---
Exam(s) XR SHOULDER RT COMPLETE 2+V EXAM: XR SHOULDER RT COMPLETE 2+V INDICATION: f/u surgery. COMPARISON: CR XR SHOULDER RT COMPLETE 2+V from 05/23/2023 TECHNIQUE: 2D digital imaging was performed. Two views. FINDINGS: Stable alignment of shoulder prosthesis. No abnormal bony lucencies. DATA REPOSITORY: RADIATION DOSE DELIVERED:
== END 2024-05-14 14:10 | disposition home or self-care (01) ==
LOC: DIORS 15:26
PROVIDERS: PCP Nurse Practitioner Family; Visit Provider Student in an Organized Health Care Education/Training Program
DX: Z47.1 Aftercare following joint replacement surgery (principal); Z96.611 Presence of right artificial shoulder joint
CPT/HCPCS: 73030

== ENCOUNTER 2024-12-02 01:03 | Outpatient (CLI) | payer OTHER, SELFPAY ==
--- NOTE | 2024-12-02 | DI.US_ITS ---
Exam(s) US BREAST RT LIMITED MG MAMMO DIAGNOSTIC BI EXAM: MG MAMMO DIAGNOSTIC BI and U/S breast RT limited CLINICAL HISTORY: Mobile, acutely tender 5 mm mass palpable to the rt upper outer quadrant,. TECHNIQUE: Craniocaudal and mediolateral oblique Full Field Digital Mammography views with Computer Aided Diagnosis followed by Tomosynthesis and limited right breast ultrasound. COMPARISON: Comparison is made with prior examinations. FINDINGS: Mammography/Tomosynthesis: Masses/Architectural Distortion: No suspicious masses or areas of architectural distortion. Microcalcifictions: No suspicious pleomorphic-type are seen. Skin Thickening/Nipple Retraction: None. Limited right breast US: Echotexture: Normal appearance of the glandular tissue. Shadowing: No suspicious foci. Cyst: None. Solid lesions: None seen. Ductal dilation: None. IMPRESSION: 1. No evidence of malignancy is noted. 2. Unless there is more urgent need, follow-up screening mammography is recommended, as per [place] [employer] guidelines. 3. The findings were discussed with the patient on the date of the examination. BI-RADS Category 1 - Negative Breast Density - Category C - Heterogeneously dense Breast density Category C or D implies that the patient has dense breast tissue. Dense breast tissue can make it harder to find cancer on a mammogram. Dense breast tissue is also associated with an incr eased risk of breast cancer. This information about the result of the mammogram report was provided to the patient to raise their awareness. Use this report when you speak with the patient about their risks for breast cancer, which includes their family history. At that time, you may recommend additional screening tests (Ultrasoun d or MRI) as these tests may add significant information. A negative radiographic report should not delay biopsy if a dominant or clinically suspicious mass is present. Up to ten percent of cancers are not identified on mammography. A negative report may reinforce clinical impression. Adenosis and dense breasts may obscure an underlying neoplasm. False positive reports average 6 to 10%. Patient will receive a letter notifying them of these results.
== END 2024-12-02 01:23 ==
LOC: DI 01:03
PROVIDERS: PCP Nurse Practitioner Family; Visit Provider Nurse Practitioner Family
DX: Z12.31 Encounter for screening mammogram for malignant neoplasm of breast (principal); N63.11 Unspecified lump in the right breast, upper outer quadrant
CPT/HCPCS: 76642; 77062; 77066; G0279